=== PATIENT | male | born 1940 | race Caucasian/White ===

== ENCOUNTER 2017-09-26 01:50 | Emergency (ER) | payer OTHER ==
--- NOTE | 2017-09-26 02:13 | EDPHYS ---
Physician Documentation [facility] Name: Valente Dave Age: 77 yrs Sex: Male : 1940 Arrival Date: 09/26/2017 Time: 01:51 Bed 5 Private MD: Mirza Park ED Physician Jared Fernandez HPI: 09/26 02:05 This 77 yrs old Male presents to ER via Ambulatory with complaints of Other, ps1 Insect Bite. 02:05 patient states that he was mowing his yard and felt 3 insect bites one on each ankle ps1 and one to the left elbow. He states that he did not see what bit him. He came in because the pain did not remit since the event several hours ago. He took an aspirin and a benadryl and applied ice packs. No obvious injury or erythema. Patient additionally has hypertension and runs systolic in 200's especially during medical evaluations. He is asymptomatic. . Historical: - Allergies: 02:05 No Known Allergies; bb - Home Meds: 02:05 simvastatin 20 mg Oral tab 1 tab once daily [Active]; losartan 100 mg oral tab 1 tab bb once daily [Active]; omeprazole 20 mg Oral cpDR 1 cap once daily [Active]; tramadol 50 mg Oral tab as needed [Active]; - PMHx: 02:05 BPH; High Cholesterol; Hypertension; bb - PSHx: 02:05 prostate surgery; bb - Immunization history:: Adult Immunizations up to date. - Social history:: Smoking status: unknown. - Ebola Screening: : No symptoms or risks identified at this time. ROS: 02:05 Constitutional: Negative for fever, chills, and weight loss, Eyes: Negative for injury, ps1 pain, redness, and discharge, ENT: Negative for injury, pain, and discharge, Cardiovascular: Negative for chest pain, palpitations, and edema, Respiratory: Negative for shortness of breath, cough, wheezing, and pleuritic chest pain, Abdomen/GI: Negative for abdominal pain, nausea, vomiting, diarrhea, and constipation, Back: Negative for injury and pain, MS/Extremity: Negative for injury and deformity. 02:05 Skin: Positive for discoloration. Exam: 02:05 Constitutional: This is a well developed, well nourished patient who is awake, alert, ps1 and in no acute distress. Head/Face: Normocephalic, atraumatic. Eyes: Pupils equal round and reactive to light, extra-ocular motions intact. Lids and lashes normal. Conjunctiva and sclera are non-icteric and not injected. Chest/axilla: Normal chest wall appearance and motion. Nontender with no deformity. No lesions are appreciated. Cardiovascular: Regular rate and rhythm. No gallops, murmurs, or rubs. Normal PMI, no JVD. No pulse deficits. Respiratory: Lungs have equal breath sounds bilaterally, clear to auscultation and percussion. No rales, rhonchi or wheezes noted. No increased work of breathing, no retractions or nasal flaring. Abdomen/GI: Soft, non-tender, with normal bowel sounds. No distension or tympany. No guarding or rebound. No evidence of tenderness throughout. MS/ Extremity: Pulses equal, no cyanosis. Neurovascular intact. Full, normal range of motion. Neuro: Awake and alert, GCS 15, oriented to person, place, time, and situation. Cranial nerves II-XII grossly intact. Sensory grossly intact. 02:05 Skin: small punctate mariano at the site of reported bite. No surrounding erythema or inflammation. . Vital Signs: 02:05 BP 202 / 100; Pulse 85; Resp 18 S; Temp 98.1(O); Pulse Ox 97% on R/A; Weight 83.91 kg bb (R); Height 5 ft. 6 in. (167.64 cm) (R); Pain 8/10; 02:26 BP 192 / 109; Pulse 82; Resp 18; Temp 98.1(O); Pulse Ox 97% on R/A; ak1 02:05 Body Mass Index 29.86 (83.91 kg, 167.64 cm) bb MDM: 02:05 Data reviewed: vital signs, nurses notes, and as a result, I will discharge patient. ps1 02:12 Patient medically screened. ps1 Administered Medications: 02:22 Drug: Decadron 10 mg Route: IM; Site: Other; ak1 02:25 Follow up: Response: No adverse reaction ak1 02:23 Drug: TORadol 30 mg Route: IM; Site: left deltoid; ak1 02:25 Follow up: Response: No adverse reaction ak1 Disposition: 09/26/17 02:12 Discharged to Home. Impression: insect bite. - Condition is Stable. - Discharge Instructions: Insect Bite, [id number]. - Medication Reconciliation Form, Thank You Letter, Antibiotic Education, Prescription Opioid Use form. - Follow up: Mirza Park MD; When: As needed; Reason: Recheck today's complaints, Continuance of care, Re-evaluation by your physician. Follow up: Emergency Department; When: As needed; Reason: Trouble breathing, Worsening of condition. - Problem is new. - Symptoms have improved. Signatures: Soledad Hill RN RN bb Hailee Valencia RN RN ak1 Jared Fernandez MD MD ps1 Corrections: (The following items were deleted from the chart) 02:37 02:12 09/26/2017 02:12 Discharged to Home. Impression: insect bite. Condition is ak1 Stable. Forms are Medication Reconciliation Form, Thank You Letter, Antibiotic Education, Prescription Opioid Use. Follow up: Mirza Park; When: As needed; Reason: Recheck today's complaints, Continuance of care, Re-evaluation by your physician. Follow up: Emergency Department; When: As needed; Reason: Trouble breathing, Worsening of condition. Problem is new. Symptoms have improved. ps1
--- NOTE | 2017-09-26 02:13 | ER ---
Nurse's Notes [facility] Name: Valente Dave Age: 77 yrs Sex: Male : 1940 Arrival Date: 09/26/2017 Time: 01:51 Bed 5 Private MD: Mirza Park Diagnosis: insect bite Presentation: 09/26 02:01 Presenting complaint: Patient states: he was mowing the yard about 1800/1900 last night bb and was bit by some insects on his ankles and left elbow he tried aspirin, benadryl, and ice packs and the pain is still intense. Transition of care: patient was not received from another setting of care. Onset of symptoms was September 25, 2017. Risk Assessment: Do you want to hurt yourself or someone else? Patient reports no desire to harm self or others. Initial Sepsis Screen: Does the patient meet any 2 criteria? No. Patient's initial sepsis screen is negative. Does the patient have a suspected source of infection? No. Patient's initial sepsis screen is negative. Care prior to arrival: None. 02:01 Method Of Arrival: Ambulatory bb 02:01 Acuity: GLORIA 5 bb Triage Assessment: 02:10 Bite description: bite sustained to left leg and right leg by an unknown animal, animal ak1 information: vaccination(s) is not applicable. Historical: - Allergies: 02:05 No Known Allergies; bb - Home Meds: 02:05 simvastatin 20 mg Oral tab 1 tab once daily [Active]; losartan 100 mg oral tab 1 tab bb once daily [Active]; omeprazole 20 mg Oral cpDR 1 cap once daily [Active]; tramadol 50 mg Oral tab as needed [Active]; - PMHx: 02:05 BPH; High Cholesterol; Hypertension; bb - PSHx: 02:05 prostate surgery; bb - Immunization history:: Adult Immunizations up to date. - Social history:: Smoking status: unknown. - Ebola Screening: : No symptoms or risks identified at this time. Screenin:07 Abuse screen: Denies threats or abuse. Denies injuries from another. Nutritional ak1 screening: No deficits noted. Tuberculosis screening: No symptoms or risk factors identified. Fall Risk None identified. Assessment: 02:07 General: Appears in no apparent distress. Behavior is calm, cooperative. Pain: ak1 Complains of pain in right leg and left leg. Neuro: No deficits noted. Cardiovascular: No deficits noted. Respiratory: No deficits noted. GI: : No signs and/or symptoms were reported regarding the genitourinary system. EENT: No signs and/or symptoms were reported regarding the EENT system. Derm: Skin is intact, is healthy with good turgor, Skin is pink, warm \T\ dry. pt reports pain to left ankle, left lower leg and right ankle after mowing the yard. pt states, insect bite or sting to the locations of pain. no wound noted. Musculoskeletal: No signs and/or symptoms reported regarding the musculoskeletal system. Vital Signs: 02:05 BP 202 / 100; Pulse 85; Resp 18 S; Temp 98.1(O); Pulse Ox 97% on R/A; Weight 83.91 kg bb (R); Height 5 ft. 6 in. (167.64 cm) (R); Pain 8/10; 02:26 BP 192 / 109; Pulse 82; Resp 18; Temp 98.1(O); Pulse Ox 97% on R/A; ak1 02:05 Body Mass Index 29.86 (83.91 kg, 167.64 cm) bb ED Course: 01:51 Patient arrived in ED. es 01:51 Mirza Park MD is Private Physician. es 02:00 Jared Fernandez MD is Attending Physician. ps1 02:03 Triage completed. bb 02:05 Arm band placed on Patient placed in an exam room, on a stretcher. bb 02:07 Hailee Valencia, RN is Primary Nurse. ak1 02:07 Patient has correct armband on for positive identification. Bed in low position. Call ak1 light in reach. Side rails up X 1. Pulse ox on. NIBP on. 02:12 Mirza Park MD is Referral Physician. ps1 02:24 No provider procedures requiring assistance completed. Patient did not have IV access ak1 during this emergency room visit. Administered Medications: 02:22 Drug: Decadron 10 mg Route: IM; Site: Other; ak1 02:25 Follow up: Response: No adverse reaction ak1 02:23 Drug: TORadol 30 mg Route: IM; Site: left deltoid; ak1 02:25 Follow up: Response: No adverse reaction ak1 Outcome: 02:12 Discharge ordered by . ps1 02:25 Discharged to home ambulatory. ak1 02:25 Condition: stable 02:25 Discharge instructions given to patient, Instructed on discharge instructions, follow up and referral plans. Demonstrated understanding of instructions, follow-up care. 02:37 Patient left the ED. ak1 Signatures: Noy De Jesus Brenda RN RN bb Hailee Valencia RN RN ak1 Jared Fernandez MD MD ps1
[2017-09-26] MEDS ORDERED: KETOROLAC 30 MG/ML INJ ONE (02:19)
[2017-09-26] MEDS ORDERED: DEXAMETHASONE 10 MG/ML VIAL ONE (02:19)
== END 2017-09-26 02:37 | disposition home or self-care (01) ==
LOC: ER 01:50
DX: T14.8XXA Other injury of unspecified body region, initial encounter (principal); W57.XXXA Bitten or stung by nonvenomous insect and other nonvenomous arthropods, initial encounter; Y93.9 Activity, unspecified; Y92.9 Unspecified place or not applicable; E78.00 Pure hypercholesterolemia, unspecified; I10 Essential (primary) hypertension
CPT/HCPCS: 96372; 99283; J1100

== ENCOUNTER 2018-08-06 15:10 | Emergency (ER) | payer MEDICARE, OTHER ==
--- NOTE | 2018-08-06 15:54 | RAD REPORT ---
EXAM DESCRIPTION: RAD - Chest Single View - 08/06/2018 3:49 pm CLINICAL HISTORY: Chest pain COMPARISON: October 2015 TECHNIQUE: AP portable chest image was obtained 1548 hours . FINDINGS: Lung volumes are low. No peripheral mass, consolidation or failure finding. Heart and vasc ulature are normal. No measurable pleural effusion and no pneumothorax. No acute bony abnormality see n. No acute aortic findings suspected. IMPRESSION: Limited shallow inspiration portable exam without acute cardiopulmonary finding.
[2018-08-06 16:12] LABS: Absolute Lymphocytes (CBC) 1.2 K/uL (0.7-4.9); Absolute Monocytes 1.5 K/uL (0.1-1.3); Absolute Neutrophil 8.6 K/uL (1.8-8.0); Basophils % 0.4 % (0-1.3); Eosinophils % 0.3 % (0-4.4); Hematocrit 42.4 % (39.6-49.0); Lymphocytes % 10.9 % (15.3-44.8); MPV 9.7 fL (7.6-11.3); Monocytes % 13.3 % (3.3-12.3); RBC Red Blood Cell Count 4.65 M/uL (4.33-5.43)
[2018-08-06 16:30] LABS: ALT/SGPT 32 U/L (12-78); AST/SGOT 16 U/L (15-37); Alkaline Phosphatase 69 U/L (45-117); BUN Blood Urea Nitrogen 25 mg/dL (7-18); Bicarbonate 29 mmol/L (21-32); Bilirubin Total 1.2 mg/dL (0.2-1.0); Glucose Level 102 mg/dL (74-106); Magnesium 1.9 mg/dL (1.8-2.4); NT PRO-BNP 215 pg/mL (<450); Potassium 3.2 mmol/L (3.5-5.1); Protein, Total 7.5 g/dL (6.4-8.2); Sodium Level 139 mmol/L (136-145); Troponin (Emerg Dept Use Only) < 0.02 ng/mL (0.0-0.045)
--- NOTE | 2018-08-06 18:33 | EDPHYS ---
Physician Documentation [facility] Name: Valente Dave Age: 78 yrs Sex: Male : 1940 Arrival Date: 08/06/2018 Time: 15:13 Bed 7 Private MD: Janie Montero C ED Physician Jared Fernandez HPI: 08/06 18:32 This 78 yrs old Male presents to ER via Ambulatory with complaints of Chest ps1 Pain. 18:32 patient states that he has been working outside in the heat and may have got ps1 dehydrated. He is additionally on lasix, drinks coffee, and soft drinks. He states he was doing exertional work and started having symptoms of lightheadedness. He went to bed and has had non-specific chest pain that feels like a knot in his chest that does not radiate. No nausea or diaphoresis. Had a chest pain workup with stress test and echo that was normal. . Historical: - Allergies: 15:17 No Known Allergies; hj - PMHx: 15:17 BPH; High Cholesterol; Hypertension; hj - PSHx: 15:17 prostate surgery; hj - Immunization history:: Adult Immunizations up to date. - Social history:: Smoking status: Patient/guardian denies using tobacco. - Ebola Screening: : No symptoms or risks identified at this time. ROS: 18:32 Constitutional: Negative for fever, chills, and weight loss, Eyes: Negative for injury, ps1 pain, redness, and discharge, Respiratory: Negative for shortness of breath, cough, wheezing, and pleuritic chest pain, Abdomen/GI: Negative for abdominal pain, nausea, vomiting, diarrhea, and constipation, MS/Extremity: Negative for injury and deformity, Skin: Negative for injury, rash, and discoloration, Neuro: Negative for headache, weakness, numbness, tingling, and seizure. 18:32 Cardiovascular: Positive for chest pain. Exam: 18:32 Constitutional: This is a well developed, well nourished patient who is awake, alert, ps1 and in no acute distress. Head/Face: Normocephalic, atraumatic. Eyes: Pupils equal round and reactive to light, extra-ocular motions intact. Lids and lashes normal. Conjunctiva and sclera are non-icteric and not injected. ENT: Nares patent. No nasal discharge, no septal abnormalities noted. Tympanic membranes are normal and external auditory canals are clear. Oropharynx with no redness, swelling, or masses, exudates, or evidence of obstruction, uvula midline. Mucous membranes moist. Chest/axilla: Normal chest wall appearance and motion. Nontender with no deformity. No lesions are appreciated. Cardiovascular: Regular rate and rhythm. No gallops, murmurs, or rubs. Normal PMI, no JVD. No pulse deficits. Respiratory: Lungs have equal breath sounds bilaterally, clear to auscultation and percussion. No rales, rhonchi or wheezes noted. No increased work of breathing, no retractions or nasal flaring. Abdomen/GI: Soft, non-tender, with normal bowel sounds. No distension or tympany. No guarding or rebound. No evidence of tenderness throughout. MS/ Extremity: Pulses equal, no cyanosis. Neurovascular intact. Full, normal range of motion. Neuro: Awake and alert, GCS 15, oriented to person, place, time, and situation. Cranial nerves II-XII grossly intact. Sensory grossly intact. Psych: Awake, alert, with orientation to person, place and time. Behavior, mood, and affect are within normal limits. Vital Signs: 15:17 BP 137 / 81; Pulse 124; Resp 16; Temp 99.5(TE); Pulse Ox 96% on R/A; Weight 83.91 kg; hj Height 5 ft. 6 in. (167.64 cm); Pain 5/10; 16:00 BP 123 / 86; Pulse 107; Resp 18; Temp 98.0(O); Pulse Ox 95% on R/A; Pain 0/10; dh3 17:00 BP 113 / 75; Pulse 100; Resp 17; Temp 98.1(O); Pulse Ox 96% on R/A; Pain 0/10; dh3 18:00 BP 129 / 84; Pulse 111; Resp 16; Temp 98.1; Pulse Ox 95% on R/A; Pain 0/10; dh3 15:17 Body Mass Index 29.86 (83.91 kg, 167.64 cm) MDM: 16:13 Patient medically screened. ps1 18:37 Data reviewed: vital signs, nurses notes, lab test result(s), EKG, radiologic studies, ps1 and as a result, I will discharge patient. Counseling: I had a detailed discussion with the patient and/or guardian regarding: the historical points, exam findings, and any diagnostic results supporting the discharge/admit diagnosis, lab results, radiology results, the need for outpatient follow up, to return to the emergency department if symptoms worsen or persist or if there are any questions or concerns that arise at home. 08/06 15:30 Order name: CBC with Diff ps1 08/06 15:30 Order name: Magnesium; Complete Time: 16:35 ps1 08/06 15:30 Order name: NT PRO-BNP; Complete Time: 16:35 ps1 08/06 15:30 Order name: Troponin (emerg Dept Use Only); Complete Time: 16:35 ps1 08/06 15:30 Order name: CMP; Complete Time: 16:35 ps1 08/06 15:31 Order name: CBC with Automated Diff; Complete Time: 16:16 EDMS 08/06 15:19 Order name: EKG - Nurse/Tech; Complete Time: 15:34 hj 08/06 15:30 Order name: XRAY Chest (1 view); Complete Time: 16:13 ps1 08/06 15:30 Order name: EKG; Complete Time: 15:32 ps1 08/06 15:30 Order name: Cardiac monitoring; Complete Time: 15:52 ps1 08/06 15:30 Order name: IV Saline Lock; Complete Time: 15:52 ps1 08/06 15:30 Order name: Labs collected and sent; Complete Time: 15:52 ps1 08/06 15:30 Order name: O2 Per Protocol; Complete Time: 15:52 ps1 08/06 17:02 Order name: DD; Complete Time: 18:08 ps1 08/06 15:30 Order name: O2 Sat Monitoring; Complete Time: 15:52 ps1 EC:30 Rate is 116 beats/min. Rhythm is regular. QRS [place] is Normal. [place] interval is normal. ps1 QRS interval is normal. QT interval is normal. No Q waves. T waves are Normal. No ST changes noted. Clinical impression: Sinus tachycardia. Interpreted by me. Administered Medications: No medications were administered Disposition: 08/06/18 18:32 Discharged to Home. Impression: Dehydration, Other chest pain, Cough. - Condition is Stable. - Discharge Instructions: Nonspecific Chest Pain, Dehydration, Adult. - Medication Reconciliation Form, Thank You Letter, Antibiotic Education, Prescription Opioid Use form. - Follow up: Janie Montero MD; When: 48 Hours; Reason: Further diagnostic work-up, Recheck today's complaints, Continuance of care, Re-evaluation by your physician. Follow up: Emergency Department; When: As needed; Reason: Fever > 102 F, Trouble breathing, Worsening of condition. - Problem is new. - Symptoms have improved. Signatures: Dispatcher [employer] EDMS Valentin Noyola RN RN hj Bebeto Wong RN RN Jared Andre MD MD ps1 Corrections: (The following items were deleted from the chart) 18:44 18:32 08/06/2018 18:32 Discharged to Home. Impression: Dehydration; Other chest pain; bp Cough. Condition is Stable. Forms are Medication Reconciliation Form, Thank You Letter, Antibiotic Education, Prescription Opioid Use. Follow up: Janie Montero; When: 48 Hours; Reason: Further diagnostic work-up, Recheck today's complaints, Continuance of care, Re-evaluation by your physician. Follow up: Emergency Department; When: As needed; Reason: Fever > 102 F, Trouble breathing, Worsening of condition. Problem is new. Symptoms have improved. ps1
--- NOTE | 2018-08-06 18:33 | ER ---
Nurse's Notes [facility] Name: Valente Dave Age: 78 yrs Sex: Male : 1940 Arrival Date: 08/06/2018 Time: 15:13 Bed 7 Private MD: Janie Montero C Diagnosis: Dehydration;Other chest pain;Cough Presentation: 08/06 15:14 Presenting complaint: Patient states: about 8 pm last night, i felt this pain on my hj chest, feeling tight and the pain goes to my back, i was doing yard work last Saturday, now i felt congested; denies fever; i called my PCP and was advised to go to the ER;. Transition of care: patient was not received from another setting of care. Onset of symptoms was August 06, 2018. Risk Assessment: Do you want to hurt yourself or someone else? Patient reports no desire to harm self or others. Initial Sepsis Screen: Does the patient meet any 2 criteria? No. Patient's initial sepsis screen is negative. Does the patient have a suspected source of infection? No. Patient's initial sepsis screen is negative. Care prior to arrival: None. 15:14 Method Of Arrival: Ambulatory 15:14 Acuity: GLORIA 3 hj Triage Assessment: 15:15 General: Appears in no apparent distress. comfortable, Behavior is cooperative, bp appropriate for age, anxious. Pain: Complains of pain in chest. EENT: No deficits noted. Neuro: Level of Consciousness is awake, alert, obeys commands, Oriented to person, place, time, situation, Appropriate for age. Cardiovascular: Rhythm is sinus tachycardia. Respiratory: No deficits noted. GI: No signs and/or symptoms were reported involving the gastrointestinal system. : No signs and/or symptoms were reported regarding the genitourinary system. Derm: No deficits noted. Musculoskeletal: No deficits noted. Historical: - Allergies: 15:17 No Known Allergies; hj - PMHx: 15:17 BPH; High Cholesterol; Hypertension; hj - PSHx: 15:17 prostate surgery; hj - Immunization history:: Adult Immunizations up to date. - Social history:: Smoking status: Patient/guardian denies using tobacco. - Ebola Screening: : No symptoms or risks identified at this time. Screenin:52 Abuse screen: Denies threats or abuse. Denies injuries from another. Nutritional bp screening: No deficits noted. Tuberculosis screening: No symptoms or risk factors identified. Fall Risk None identified. Assessment: 15:20 General: SEE TRIAGE NOTE. Pain: Complains of pain in chest Pain does not radiate. Pain bp began 2-3 days ago. Cardiovascular: Rhythm is sinus tachycardia. 17:00 Reassessment: ALL CURRENT ORDERS IN PROCESS, PT REMAINS IN ST ON MONITOR. bp 18:43 Reassessment: PT D/C HOME AMBULATORY WITH FAMILY, DX WITH DEHYDRATION AND NON-CARDIAC bp CHEST PAIN. Vital Signs: 15:17 BP 137 / 81; Pulse 124; Resp 16; Temp 99.5(TE); Pulse Ox 96% on R/A; Weight 83.91 kg; hj Height 5 ft. 6 in. (167.64 cm); Pain 5/10; 16:00 BP 123 / 86; Pulse 107; Resp 18; Temp 98.0(O); Pulse Ox 95% on R/A; Pain 0/10; dh3 17:00 BP 113 / 75; Pulse 100; Resp 17; Temp 98.1(O); Pulse Ox 96% on R/A; Pain 0/10; dh3 18:00 BP 129 / 84; Pulse 111; Resp 16; Temp 98.1; Pulse Ox 95% on R/A; Pain 0/10; dh3 15:17 Body Mass Index 29.86 (83.91 kg, 167.64 cm) ED Course: 15:13 Patient arrived in ED. mr 15:13 Janie Montero MD is Private Physician. mr 15:17 Triage completed. hj 15:17 Arm band placed on right wrist. hj 15:29 Jared Fernandez MD is Attending Physician. ps1 15:31 Bebeto Wong, MARIANELA is Primary Nurse. bp 15:37 EKG done, by distribution technician. reviewed by Jared Fernandez MD. sm3 15:50 XRAY Chest (1 view) In Process Unspecified. EDMS 15:50 Inserted saline lock: 20 gauge in right forearm, using aseptic technique. Blood bp collected. 15:50 Patient maintains SpO2 saturation greater than 95% on room air. bp 15:52 Patient has correct armband on for positive identification. Placed in gown. Bed in low bp position. Call light in reach. Side rails up X2. Adult w/ patient. laboratory monitor on. Pulse ox on. NIBP on. 17:17 DD Sent. ss 18:31 Janie Montero MD is Referral Physician. ps1 18:43 No provider procedures requiring assistance completed. IV discontinued, intact, bp bleeding controlled, No redness/swelling at site. Pressure dressing applied. Administered Medications: No medications were administered Outcome: 18:32 Discharge ordered by MD. ps1 18:44 Discharged to home ambulatory, with family. bp 18:44 Condition: stable 18:44 Discharge instructions given to patient, Instructed on discharge instructions, follow up and referral plans. Demonstrated understanding of instructions, follow-up care. 18:44 Patient left the ED. bp Signatures: Dispatcher [employer] EDIL Susan Campbell Amy Tierney, RN RN Valentin Noyola RN MARIANELA Rachel Mace 3 Bebeto Wong RN RN bp Jared Fernandez MD MD ps1 Rodriguez, Debbie 3 Corrections: (The following items were deleted from the chart) 18:35 18:00 BP 129 / 84; Pulse 111bpm; Resp 16bpm; Pulse Ox 95% RA; dh3 dh3 18:35 17:00 BP 113 / 75; Pulse 100bpm; Resp 17bpm; Pulse Ox 96% RA; dh3 dh3 18:35 16:00 BP 123 / 86; Pulse 107bpm; Resp 18bpm; Pulse Ox 95% RA; dh3 dh3
--- NOTE | 2018-08-06 21:17 | EKG ---
Test Date: 2018-08-06 Test Time: 15:30:09 College Intern: MARY MEASUREMENT RESULTS: Intervals: Rate: 116 WY: 154 QRSD: 72 QT: 306 QTc: 425 [place]: P: 51 WY: 154 QRS: 54 T: 59 INTERPRETIVE STATEMENTS: Sinus tachycardia Otherwise normal ECG Compared to ECG 02/01/2016 14:32:51 Sinus rhythm no longer present Electronically Signed On 08-06-18 21:17:24 CDT by Rufus Goyal
== END 2018-08-06 18:44 | disposition home or self-care (01) ==
LOC: ER 15:10
DX: E86.0 Dehydration (principal); R05 Cough; I10 Essential (primary) hypertension
CPT/HCPCS: 36415; 71045; 80053; 83735; 83880; 84484; 85025; 85379; 93005; 99285

== ENCOUNTER 2022-02-07 09:33 | Emergency (ER) | payer OTHER ==
--- OUTSIDE RECORDS SUMMARY | 2022-02-07 09:36 | XMS REPORT | Continuity of Care Document ---
:1940 Author Organization [facility] t Address [address] [place] [address] Dr. [place] [address] [place] [id number] Care Team Providers Name Role Phone Ketan Attending Clinician Unavailable Ketan Admitting Clinician Unavailable Problems This patient has no known problems. Allergies, Adverse Reactions, Alerts This patient has no known allergies or adverse reactions. Medications This patient has no known medications. Procedures This patient has no known procedures. Encounters Start End Encounter Admission Attending Care Care Encounter Source Date/Time Date/Time Type Type Clinicians Facility Department ID 2019-07-10 2019-07-10 Outpatient Ketan [facility] [id number] [place] 03:20:00 03:20:00 [facility] Results This patient has no known results.
--- NOTE | 2022-02-07 10:45 | EDPHYS ---
Physician Documentation [facility] Name: Valente Dave Age: 81 yrs Sex: Male : 1940 Arrival Date: 02/07/2022 Time: 09:37 Bed 10 Private MD: Janie Montero C ED Physician Joshua Grace HPI: 02/07 10:02 This 81 yrs old Male presents to ER via Ambulatory with complaints of Sinus Pain. jm 10:02 The patient or guardian reports. This is an 81 year old male with a history of hlp, jmm htn, bph that presents to the ED with complaints of right lower molar pain which has been ongoing since an extraction which occurred on the 4th of this month. Denies fever but states pain radiates into the right ear. . Historical: - PMHx: 09:59 BPH; High Cholesterol; Hypertension; jh5 - Immunization history:: Adult Immunizations up to date. - Social history:: Smoking status: Patient denies any tobacco usage or history of. ROS: 10:02 Constitutional: Negative for fever, chills, and weight loss, Cardiovascular: Negative jmm for chest pain, palpitations, and edema, Respiratory: Negative for shortness of breath, cough, wheezing, and pleuritic chest pain. 10:02 ENT: Positive for dental pain. 10:02 All other systems are negative. Exam: 10:02 Constitutional: This is a well developed, well nourished patient who is awake, alert, jmm and in no acute distress. Head/Face: atraumatic. Eyes: EOMI, no conjunctival erythema appreciated 10:02 Chest/axilla: Normal chest wall appearance and motion. Cardiovascular: Regular rate and rhythm. No edema appreciated Respiratory: Normal respirations, no respiratory distress appreciated Abdomen/GI: Non distended Back: Normal ROM Skin: General appearance color normal MS/ Extremity: Moves all extremities, no obvious deformities appreciated, no edema noted to the lower extremities Neuro: Awake and alert Psych: Behavior is normal, Mood is normal, Patient is cooperative and pleasant 10:02 ENT: Dental exam: gum swelling, that is mild, specifically in the lower right second molar (#31) and lower right third molar (#32). Vital Signs: 09:55 BP 128 / 112; Pulse 75; Resp 18; Temp 98.6; Pulse Ox 100% ; Weight 77.11 kg; Height 5 [facility] ft. 8 in. (172.72 cm); Pain 7/10; 10:57 BP 140 / 86; Pulse 76; kr3 09:55 Body Mass Index 25.85 (77.11 kg, 172.72 cm) [facility] MDM: 10:04 Patient medically screened. [facility] 10:43 Data reviewed: vital signs, nurses notes. Counseling: I had a detailed discussion with [facility] the patient and/or guardian regarding: the historical points, exam findings, and any diagnostic results supporting the discharge/admit diagnosis, the need for outpatient follow up, to return to the emergency department if symptoms worsen or persist or if there are any questions or concerns that arise at home. ED course: Patient is alert and non toxic in appearance in the ED. Advised to follow up with dentist for reevaluation. Patient is otherwise given strict return precautions. Patient understood and agrees with the plan of care. . Administered Medications: No medications were administered Disposition Summary: 02/07/22 10:44 Discharge Ordered Location: Home [facility] Condition: Stable [facility] Diagnosis - Dental Pain [facility] Followup: [facility] - With: Rj Shi DDS - When: 2 - 3 days - Reason: Recheck today's complaints, Continuance of care, Re-evaluation by your physician Discharge Instructions: - Discharge Summary Sheet [facility] - Dental Pain [facility] Forms: - Medication Reconciliation Form [facility] - Thank You Letter [facility] - Antibiotic Education [facility] - Prescription Opioid Use [facility] Prescriptions: - Peridex 0.12 % Mucous Membrane mouthwash - place 15 milliliter by MUCOUS MEMBRANE route 2 times per day after brushing [facility] teeth, swish in mouth for 30 seconds then spit out; 1 bottle; Refills: 0, Product Selection Permitted - Amoxicillin 875 mg Oral Tablet - take 1 tablet by ORAL route every 12 hours for 10 days; 20 tablet; Refills: 0, [facility] Product Selection Permitted Signatures: Joshua Grace MD MD cha Mickail, Joel, PA PA jmm Rees, Jessica, RN RN 5
--- NOTE | 2022-02-07 10:45 | ER ---
Nurse's Notes [facility] Name: Valente Dave Age: 81 yrs Sex: Male : 1940 Arrival Date: 02/07/2022 Time: 09:37 Bed 10 Private MD: Janie Montero C Diagnosis: Dental Pain Presentation: 02/07 09:55 Chief complaint: Patient states: I had tooth extraction at [place] and I didn't go to a oral 5 surgeon like i have in the past and I am getting sinus pain and maybe an infection I think I just wanted to come have someone look at it and tell me if i need antibiotics; i just cant get comfortable. Coronavirus screen: Vaccine status: Patient reports receiving the 2nd dose of the covid vaccine. Client denies travel out of the [place] in the last 14 days. Ebola Screen: Patient negative for fever greater than or equal to 101.5 degrees Fahrenheit, and additional compatible Ebola Virus Disease symptoms Patient denies exposure to infectious person. Patient denies travel to an Ebola-affected area in the 21 days before illness onset. Initial Sepsis Screen: Does the patient meet any 2 criteria? No. Patient's initial sepsis screen is negative. Does the patient have a suspected source of infection? No. Patient's initial sepsis screen is negative. Risk Assessment: Do you want to hurt yourself or someone else? Patient reports no desire to harm self or others. 09:55 Method Of Arrival: Ambulatory [facility] 09:55 Acuity: GLORIA 3 [facility] 10:56 Onset of symptoms was February 02, 2022. 3 Triage Assessment: 09:59 General: Appears uncomfortable, slender, well groomed, well developed, Behavior is jh5 calm, cooperative, appropriate for age. Pain: Complains of pain in jaw Pain currently is 7 out of 10 on a pain scale. at worst was 10 out of 10 on a pain scale. Neuro: No deficits noted. 10:55 Headache History: Other no headache noted. Pain: Also complains of. [facility] 10:56 Pain: Pain began gradually. 3 Historical: - PMHx: 09:59 BPH; High Cholesterol; Hypertension; jh5 - Immunization history:: Adult Immunizations up to date. - Social history:: Smoking status: Patient denies any tobacco usage or history of. Screenin:54 Abuse screen: Denies threats or abuse. Nutritional screening: No deficits noted. kr3 Tuberculosis screening: No symptoms or risk factors identified. Fall Risk Total Mcdowell Fall Scale indicates No Risk (0-24 pts). Vital Signs: 09:55 BP 128 / 112; Pulse 75; Resp 18; Temp 98.6; Pulse Ox 100% ; Weight 77.11 kg; Height 5 [facility] ft. 8 in. (172.72 cm); Pain 7/10; 10:57 BP 140 / 86; Pulse 76; kr3 09:55 Body Mass Index 25.85 (77.11 kg, 172.72 cm) [facility] ED Course: 09:37 Patient arrived in ED. as 09:37 Janie Montero MD is Private Physician. as 09:[address] [facility] 09:49 Joshua Grace MD is Attending Physician. [facility] 09:58 Triage completed. [facility] 09:59 Arm band placed on right wrist. [facility] 10:00 Bed in low position. Call light in reach. Side rails up X 1. kr3 10:44 Rj Shi DDS is Referral Physician. [facility] 10:45 Sridevi Mclaughlin, MARIANELA is Primary Nurse. kr3 10:55 No provider procedures requiring assistance completed. Patient did not have IV access kr3 during this emergency room visit. Administered Medications: No medications were administered Medication: 10:56 VIS not applicable for this client. kr3 Outcome: 10:44 Discharge ordered by . m 10:54 Patient left the ED. kr3 10:55 Discharged to home ambulatory. kr3 10:55 Condition: stable 10:55 Discharge instructions given to patient, Instructed on discharge instructions, follow up and referral plans. medication usage, Demonstrated understanding of instructions, follow-up care, medications, Prescriptions given X 2. Signatures: Jeromy Lane PA PA jmm Martinez, Amelia as Rees, Jessica RN RN [facility] Sridevi Mclaughlin RN RN [facility]
[2022-02-07 10:58] VITALS: BP 128/112; TEMP 98.6; O2SAT 100
== END 2022-02-07 10:54 | disposition home or self-care (01) ==
LOC: ER 09:33
DX: K08.89 Other specified disorders of teeth and supporting structures (principal); I10 Essential (primary) hypertension

== ENCOUNTER 2022-06-25 06:30 | Day surgery (SDC) | payer OTHER ==
[2022-06-22 10:51] LABS: Absolute Lymphocytes (CBC) 1.1 K/uL (0.7-4.9); Hematocrit 41.1 % (39.6-49.0); Lymphocytes % 15.4 % (15.3-44.8); MCV 90.8 fL (80-100); MPV 8.3 fL (7.6-11.3); RBC Red Blood Cell Count 4.53 M/uL (4.33-5.43)
[2022-06-22 10:55] LABS: Protime INR 1.03
[2022-06-22 11:06] LABS: Potassium 3.9 mEq/L (3.5-5.1)
--- NOTE | 2022-06-22 12:41 | RAD REPORT ---
EXAM DESCRIPTION: Thort Pa And Lat (2 Views)06/22/2022 10:52 am CLINICAL HISTORY: pre op for [employer] COMPARISON: Chest Single View dated 08/06/2018; Chest Single View dated 11/14/2015 TECHNIQUE: PA and lateral views of the chest. FINDINGS: The lungs are clear. No pneumothorax or effusion. The cardiomediastinal contours are unrem arkable. IMPRESSION: No acute cardiopulmonary process.
--- NOTE | 2022-06-23 15:21 | EKG ---
Test Date: 2022-06-22 Test Time: 10:33:49 [employer] [facility] Consultant: SHWETHA MEASUREMENT RESULTS: Intervals: Rate: 77 FL: 162 QRSD: 74 QT: 372 QTc: 420 [place]: P: 66 FL: 162 QRS: 62 T: 81 INTERPRETIVE STATEMENTS: Normal sinus rhythm Normal ECG Compared to ECG 08/06/2018 15:30:09 Sinus tachycardia no longer present Electronically Signed On 06-23-22 15:20:31 CDT by Drew Magallanes
[2022-06-25] MEDS ORDERED: HEPA 1000U/500MLS 2,000 UNIT/1,000 ML BAG IV ONE (06:42)
[2022-06-25] MEDS ORDERED: LIDOCAINE 1% 20 ML MDV ONE (06:42)
[2022-06-25] MEDS ORDERED: MIDAZOLAM HCL 2 MG/2 ML INJ ONE (06:43)
[2022-06-25] MEDS ORDERED: FENTANYL CITR 100 MCG/2 ML ONE (06:43)
[2022-06-25] MEDS ORDERED: HEPARIN 5000 UNIT/ML 1 ML VIAL ONE (06:43)
[2022-06-25] MEDS ORDERED: VERAPAMIL HCL 10 MG/4 ML VIAL IV ONE (06:43)
[2022-06-25] MEDS ORDERED: HEPARIN 10,000 UNIT/10 ML VIAL IV ONE (06:44)
[2022-06-25] MEDS ORDERED: ATROPINE SULF 1 MG/10 ML SYR IV ONE (06:44)
[2022-06-25] MEDS ORDERED: NITROGLYCERIN/D5W 25 MG/250 ML BTL IV ONE (06:44)
[2022-06-25] MEDS ORDERED: NITROGLYCERIN 100 MCG/ML SYR (for cath lab use only) IV ONE (06:44)
[2022-06-25] MEDS ORDERED: NA CHLORIDE 0.9% 500 ML ONE (07:12)
[2022-06-25 07:20] VITALS: TEMP 97.5
[2022-06-25] MEDS ORDERED: Phenylephrine HCl 10 MG/ML 1 ML VIAL ONE (07:59)
[2022-06-25] MEDS ORDERED: NOREPINEPHRINE BITARTRATE/D5W 4 MG/250 ML BAG IV ONE (08:02)
[2022-06-25 10:49] VITALS: BP 117/68; O2SAT 99
--- NOTE | 2022-06-25 20:28 | OP ---
Date of Procedure: 06/25/2022 Surgeon: SHOLA GRULLON Procedure Peformed: Selective coronary angiogram. Indication: Severe aortic valve stenosis, preaortic valve replacement. Access: Right radial artery 6-Andorran closed with TR band. Complications: None. Bleeding: Less than 10 mL. Description Of Procedure: After risks, benefits, alternatives were explained, patient agreed to proc edure and signed informed consent. Patient was brought into the cardiac catheterization laboratory, prepped and draped in a sterile fashion. Then, I accessed right radial artery using pediatric microp uncture kit. Placed 6-Andorran Slender sheath, took 5-Andorran [place] 4.0 catheter into the aortic root, engaged left main in the right coronary artery, took standard views, and removed the catheter and she ath, placed TR band with hemostasis. Findings: 1.Left main: Large, normal. 2.LAD normal. Normal diagonal branches. 3.Left circumflex: Very large and dominant and normal. 4.RCA: Small and dominant and normal. Conclusion: Normal coronary arteries. Plan: Proceed with TAVR as planned. SR/MODL Voice ID: [id number] Report ID: [id number]
== END 2022-06-25 10:51 | disposition home or self-care (01) ==
LOC: CCL 06:30
PROVIDERS: ATTEND Internal Medicine
DX: I35.2 Nonrheumatic aortic (valve) stenosis with insufficiency (principal); I10 Essential (primary) hypertension; I27.20 Pulmonary hypertension, unspecified; E78.2 Mixed hyperlipidemia; R09.89 Other specified symptoms and signs involving the circulatory and respiratory systems; K21.9 Gastro-esophageal reflux disease without esophagitis; Z79.899 Other long term (current) drug therapy
CPT/HCPCS: 93005; 85025; 80048; 36415; 85610; 85730; 71046; 93454; 76937; C1893; Q9966; J1644; J2001; J2370; J2250; J3010; J7040; J0461

== ENCOUNTER 2022-08-27 13:45 | Observation (INO) | payer OTHER ==
--- OUTSIDE RECORDS SUMMARY | 2022-08-27 13:53 | XMS REPORT | Continuity of Care Document ---
:1940 Author Organization [facility] t Address [address] [facility]. [address] [place] [address] Care Team Providers Name Role Phone Emory Yepez Attending Clinician Unavailable Arya Horowitz Attending Clinician Unavailable Ketan Attending Clinician Unavailable Crystal Fermin Admitting Clinician Unavailable Physician, No Primary or Family Admitting Clinician Unavaila antonio Aceves Admitting Clinician Unavailable Payers Payer Name Policy Type Policy Number Effective Date Expiration Date S ource Problems This patient has no known problems. Allergies, Adverse Reactions, Alerts Allergy Allergy Status Severity Reaction(s) Onset Inactive Treating Comm ents Source Name Type Date Date Clinician No Known DA Active U KARINA Allergie 6- Clear s 00:00: [address] Medications This patient has no known medications. Procedures Procedure Date / Time Performed Performing Clinician Sourc e [id number] 2022-08-14 00:00:00 CHAAB.01 [facility] [id number] 2022-08-14 00:00:00 CHAAB.01 KARINA [facility] Encounters Start End Encounter Admission Attending Care Care Encounter Source Date/Time Date/Time Type Type Clinicians Facility Department ID 2022-08-14 2022-08-15 Inpatient MELCHOR Lucho PATRICE CARD [id number] [facility] 05:36:00 12:25:00 [facility] 2022-07-04 2022-07-04 Outpatient PATRICE Olivarez [facility] [id number] [facility] 09:00:00 09:00:00 Arya Bolivar jimenez [facility] 2019-07-10 2019-07-10 Outpatient Ketan [facility] [facility] [id number] [place] 03:20:00 03:20:00 [facility] Results Test Description Test Time Test Comments Results Result Comments Source CBC W/AUTO DIFF 2022-08-15 08:48:00 Test Item Value Reference Range Interpretation Comme nts WHITE BLOOD CELL (test code = WBC) 18.2 x10 3/uL 4.5-11.0 H RED BLOOD CELL (test code = RBC) 4.23 x10 6/uL 4.00-5.60 N HEMOGLOBIN (test code = HGB) 13.3 g/dL 12.5-16.9 N HEMATOCRIT (test code = HCT) 37.9 % 37.5-50.7 N MEAN CELL VOLUME (test code = MCV) 89.6 fL 81.0-99.0 MEAN CELL HGB (test code = MCH) 31.4 pg 27.0-33.0 N MEAN CELL HGB CONCETRATION (test code = MCHC) 35.1 g/dL 33.0-37. 0 N RED CELL DISTRIBUTION WIDTH CV (test code = RDW) 14.0 % 11.5- 14.5 N RED CELL DISTRIBUTION WIDTH SD (test code = RDW-SD) 45.7 fL 37 .0-54.0 N PLATELET COUNT (test code = PLT) 204 x10 3/uL 150-400 N MEAN PLATELET VOLUME (test code = MPV) 11.2 fL 7.0-9.0 H NEUTROPHIL % (test code = NT%) 85.4 % 56.0-77.0 H IMMATURE GRANULOCYTE % (test code = IG%) 0.5 % 0.0-2.0 N LYMPHOCYTE % (test code = LY%) 4.9 % 14.0-32.0 L MONOCYTE % (test code = MO%) 8.9 % 4.8-9.0 N EOSINOPHIL % (test code = EO%) 0.1 % 0.3-3.7 L BASOPHIL % (test code = BA%) 0.2 % 0.0-2.0 N NUCLEATED RBC % (test code = NRBC%) 0.0 % 0-0 N NEUTROPHIL # (test code = NT#) 15.56 x10 3/uL 2.0-7.6 H IMMATURE GRANULOCYTE # (test code = IG#) 0.10 x10 3/uL 0.00-0.03 H LYMPHOCYTE # (test code = LY#) 0.89 x10 3/uL 1.0-3.8 L MONOCYTE # (test code = MO#) 1.62 x10 3/uL 0.1-0.8 H EOSINOPHIL # (test code = EO#) 0.01 x10 3/uL 0.0-0.2 N BASOPHIL # (test code = BA#) 0.03 x10 3/uL 0.0-0.2 N NUCLEATED RBC # (test code = NRBC#) 0.00 x10 3/uL 0.0-0.1 N MANUAL DIFF REQUIRED (test code = MDIFF) NO BASIC METABOLIC [id number] 07:25:00 Test Item Value Reference Range Interpretation Comments SODIUM (test code = 140 mEq/L 134-147 N NA) POTASSIUM (test code 3.5 mEq/L 3.4-5.0 N = K) CHLORIDE (test code 107 mEq/L 100-108 N = CL) CARBON DIOXIDE (test 26 mEq/l 21-33 N code = CO2) ANION GAP (test code 10 0-20 N = GAP) GLUCOSE (test code = 163 mg/dL 70-110 H GLU) BLOOD UREA NITROGEN 16 mg/dL 7-18 N (test code = BUN) GLOMERULAR 84.7 70-80 H The Glomerular FILTRATION RATE Filtration R ate is a (test code = GFR) calculated parameterbased on serum Creatinine, pat ient age and sex. GFR va luesless than 60 mL/min/ 1.73 square meters a re indicative ofCh ronic Kidney Disease. Values less than 15 mL/min/1.73squa re meters indicate Kidney failure. The calculation forGFR is based on the CKD-EPI (2020) calculat ion. This formulais race indifferent and is the recommended for nelsy for GFRby the Natio nal Kidney Foundati on for Adults.The GFR will not calculate if th e sex is unknown or if thepatient's ag e is <18 years. 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 Princess t performance dep ends on theamount of vi martin (antigen) in th e sample.This princess t has not been FDA cleare d or approved; the t est hasbeen authori zed by FDA under an Em ergency Use Authorizati on(EUA) for use by labo ratories certified under the CLIA thatmeet the requirements to perform moderate, high or waivedcomplexit y tests. CBC W/AUTO [id number] 13:33:00 Test Item Value Reference Range Interpretation Comments WHITE BLOOD CELL (test code = 6.4 x10 3/uL 4.5-11.0 N WBC) RED BLOOD CELL (test code = 4.35 x10 6/uL 4.00-5.60 N RBC) HEMOGLOBIN (test code = HGB) 13.0 g/dL 12.5-16.9 N HEMATOCRIT (test code = HCT) 40.6 % 37.5-50.7 N MEAN CELL VOLUME (test code = 93.3 fL 81.0-99.0 N MCV) MEAN CELL HGB (test code = MCH) 29.9 pg 27.0-33.0 N MEAN CELL HGB CONCETRATION 32.0 g/dL 33.0-37.0 L (test code = MCHC) RED CELL DISTRIBUTION WIDTH CV 13.8 % 11.5-14.5 N (test code = RDW) PLATELET COUNT (test code = 266 x10 3/uL 150-400 N PLT) NEUTROPHIL % (test code = NT%) 65.2 % 56.0-77.0 N LYMPHOCYTE % (test code = LY%) 18.9 % 14.0-32.0 N NEUTROPHIL # (test code = NT#) 4.14 x10 3/uL 2.0-7.6 N LYMPHOCYTE # (test code = LY#) 1.20 x10 3/uL 1.0-3.8 N MANUAL DIFF REQUIRED (test code NO = MDIFF) RED CELL DISTRIBUTION WIDTH SD 47.4 fL 37.0-54.0 N (test code = RDW-SD) MEAN PLATELET VOLUME (test code 11.5 fL 7.0-9.0 H = MPV) IMMATURE GRANULOCYTE % (test 0.5 % 0.0-2.0 N code = IG%) MONOCYTE % (test code = MO%) 11.8 % 4.8-9.0 H EOSINOPHIL % (test code = EO%) 2.7 % 0.3-3.7 N BASOPHIL % (test code = BA%) 0.9 % 0.0-2.0 N NUCLEATED RBC % (test code = 0.0 % 0-0 N NRBC%) IMMATURE GRANULOCYTE # (test 0.03 x10 3/uL 0.00-0.03 N code = IG#) MONOCYTE # (test code = MO#) 0.75 x10 3/uL 0.1-0.8 N EOSINOPHIL # (test code = EO#) 0.17 x10 3/uL 0.0-0.2 N BASOPHIL # (test code = BA#) 0.06 x10 3/uL 0.0-0.2 N NUCLEATED RBC # (test code = 0.00 x10 3/uL 0.0-0.1 N NRBC#) PROTHROMBIN [id number] 13:27:00 Test Item Value Reference Range Interpretation Comments PROTHROMBIN TIME 12.7 SECONDS 9.3-12.9 N PATIENT (test code = PTP) INTERNATIONAL NORMAL 1.1 0.8-1.2 N TARGET INR BY RATIO (test code = INDICATIO N Indication INR) INR1. Prophylax is of venous thrombos is 2.0 - 3.0 (orthoped ic surgery), Proph ylaxis of venous throm bosis (other than hig h-risk surgery), Treat ment of Deep Vein Thrombosis/Pulm onary Embolism, Preve ntion of systemic emb olism - Tissue heart va lves, Acute Myocardia l Infarction (to prevent systemic emboli sm), Valvular heart disease, Atrial Fibrillation, Bileaflet mecha nical valve in aortic position.2. Mec hanical prosthetic valv es (high risk), 2. 5 - 3.5 Presence of Lup us Anticoagulant o r Antiphospholipi d Antibodies, Pre vention of systemic emb olism - Acute Myocardia l Infarction (to prevent recurrent infar ct). BASIC METABOLIC [id number] 13:25:00 Test Item Value Reference Range Interpretation Comments SODIUM (test code = 141 mEq/L 134-147 N NA) POTASSIUM (test code 4.2 mEq/L 3.4-5.0 N = K) CHLORIDE (test code 106 mEq/L 100-108 N = CL) CARBON DIOXIDE (test 30 mEq/l 21-33 N code = CO2) ANION GAP (test code 9 0-20 N = GAP) GLUCOSE (test code = 109 mg/dL 70-110 N GLU) BLOOD UREA NITROGEN 20 mg/dL 7-18 H (test code = BUN) GLOMERULAR 54.5 70-80 L The Glomerular FILTRATION RATE Filtration R ate is a (test code = GFR) calculated parameterbased on serum Creatinine, pat ient age and sex. GFR va luesless than 60 mL/min/ 1.73 square meters a re indicative ofCh ronic Kidney Disease. Values less than 15 mL/min/1.73squa re meters indicate Kidney failure. The calculation forGFR is based on the CKD-EPI (2020) calculat ion. This formulais race indifferent and is the recommended for nelsy for GFRby the Natio nal Kidney Foundati on for Adults.The GFR will not calculate if th e sex is unknown or if thepatient's ag e is <18 years. CREATININE (test 1.3 mg/dL 0.6-1.3 N code = CREAT) CALCIUM (test code = 9.9 mg/dL 8.0-10.5 N CA) [id number] 13:25:00 Test Item Value Reference Range Interpretation Comments ALBUMIN (test code = ALB) 4.10 g/dL 3.4-5.0 N B-TYPE NATRIURETIC [id number] 13:24:00 Test Item Value Reference Range Interpretation Comments B-TYPE NATRIURETIC PEPTIDE (test 66.0 PG/ML 0-100 N code = BNP) - XR CHEST 2 [id number] [facility] 1940 Sex: M FAX: Cheko Jones MD [phone] [place]: St: PRE FAX: Ethan Walsh MD [phone] FAX: Drew Conde MD [phone] Name: LEI SIMON [facility] : 1940 Age/S: 82/M [address] [place] [address] Unit #: [id number] Loc: [place] [address] Phys: Ethan Walsh MD Acct: [id number] Dis Date: Status: PRE IN PHONE #: [phone] Exam Date: 08/13/2022 1212 FAX #: [phone] Reason: PREOP EXAMS: CPTCODE: [id number] XR CHEST 2 V 90318 PROCEDURE INFORMATION: Exam: XR Chest Exam date and time: 08/13/2022 12:10 PM Age: 82 years old Clinical indication: Other: Preop TECHNIQUE: Imaging protocol: Radiologic exam of the chest. Views: 2 views. PA and Lateral COMPARISON: CT HEART W CN ART/GRAFTS 07/04/2022 10:12 AM FINDINGS: Lungs: There are normal lung volumes without consolidation or interstitial opacities. There is a small calcified granuloma at the lateral left lung base. Pleural spaces: Unremarkable.No pleural effusion. No pneumothorax. Heart/Mediastinum: The heart size is normal. The pulmonary vasculature is normal. The mediastinal contour is normal. The trachea is midline. Bones/joints: No acuteabnormality seen. IMPRESSION: No acute cardiopulmonary findings. at 1227 Reported and signed by: Jeremiah Delgadillo M.D. CC: Cheko Montero MD; Ethan Walsh MD; Drew Magallanes MD Technologist: RT Umer(Kenia) Trnscrd Date/Time/By: 08/13/2022 (1227) : By: Radha.TDO Orig Print D/T: S: 08/13/2022 (7089) PAGE 1 Signed Report- CTA ABD PEL W [id number] 00:00[facility]00 [facility] 1940 Sex: M Name:LEI SIMON [facility] : 1940 Age/S: 82 / M [address] [place] [address] Unit #: [id number] Loc: [facility] [place] [address] Phys: Arya Horowitz DIRECTOR COMMUNICATIONS Acct: [id number] Dis Date: Status: DEP CLI PHONE #: [phone] Exam Date: 07/04/2022 1057 FAX #: [phone] Reason: AVR EXAMS: CPT CODE: [id number] CTA ABD PEL W CONT 89718 PROCEDURE INFORMATION: Exam: CTA Heart and Coronary Arteries Without and With C ontrast Exam date and time: 07/04/2022 10:12 AM Age: 82 years old Clinical indication: Other: Aortic stenosis TECHNIQUE: Imaging protocol: Computed tomographic angiography of the heart, coronary arteries and bypass grafts (when present) without and with contrast including 3D image postprocessing (including evaluation of cardiac structure and morphology, assessment of cardiac function, and evaluation of venous structures, if performed). 3D rendering (Not supervised by radiologist): MIP and/or 3D reconstructed images were created by the technologist. Radiation optimization: All CT scans at this facility use at least one of these dose optimization techniques: automated exposure control; mA and/or kV adjustment per patient size (includes targeted exams where dose is matched to clinical indication); or iterative reconstruction. Contrast material: ISOVUE 370; Contrast volume: 100 ml; Contrast route: INTRAVENOUS (IV); Other technique: 3D renderinD reconstructed images were created, reviewed and saved. REPORTING DATA: Count of CT and Cardiac NM exams in prior 12 months: This patient has received 0known CTs and 0 known cardiac nuclear medicine studies in the 12 months prior to the current study. COMPARISON: No relevant prior studies available. FINDINGS: PHASE OF CARDIAC CYCLE MEASUREMENTS OBTAINED: 30% of the R- R interval Aortic valve morphology: Tricuspid Valve calcification: Moderate burden.Aortic valve calcium score: 912 AORTIC ANNULAR MEASUREMENTS: Annular area: 438 mm2 Perimeter: 85 mm Max diameter: 28 mm Min diameter: 19 mm Annular/Subannular calcification: None Mitral annular calcification: None Height of left main above annular plane: 16 mm Height of RCA above annular plane: 17 mm Mid ascending aorta diameter: 33 mm PAGE 1 Signed Report (CONTINUED) Name: LEI SIMON [facility] Jada Oconnor : 1940 Age/S: 82 / M [address] [place] [address] Unit #: [id number] Loc: [place] [address] Phys: Arya Horowitz DIRECTOR COMMUNICATIONS Acct: [id number] Dis Date: Status: DEP CLI PHONE #: [phone] Exam Date: 11/2022 1057 FAX #: [phone] Reason: AVR EXAMS: CPT CODE: [id number] CTA ABD PEL W CONT 67893 (Continued) LA chamber size: Mildly dilated. Myocardium: No calcification or fatty metaplasia to suggest prior infarct. Coronary arteries: Mild burden of calcified coronary plaque. Pericardium: No thickening, calcification or effusion. IMPRESSION: Aortic root measurements provided for TAVR planning. Aortic annular area: 438 mm2 High risk aortic root features: None. PROCEDURE INFORMATION: Exam: CTA Chest Without And With Contrast CTA Abdomen and Pelvis Without And With Contrast Exam date and time: 07/04/2022 10:12 AM Age: 82 years old Clinical indication: Other: Aortic stenosis TECHNIQUE: Imaging protocol: Computed tomographic angiography of the chest without and with contrast. Computed tomographic angiography of the abdomen and pelvis without and with contrast. 3D rendering(Not supervised by radiologist): MIP and/or 3D reconstructed images were created by the technologist. Radiation optimization: All CT scans at this facility use at least one of these dose optimization techniques: automated exposure control; mA and/or kV adjustment per patient size (includes targeted exams where dose is matched to clinical indication); or iterative reconstruction. Contrast material: ISOVUE 370; Contrast volume: 100 ml; Contrast route: INTRAVENOUS (IV); REPORTING DATA: Count of CT andCardiac NM exams in prior 12 months: This patient has received 0 known CTs and 0 known cardiac nuclear medicine studies in the 12 months prior to the current study. COMPARISON: No relevant prior studies available. FINDINGS: VASCULATURE: Pulmonary arteries: Normal. No pulmonary emboli. Aorta: No aortic aneurysm. No aortic dissection. Celiac trunk and mesenteric arteries: No occlusion or significant stenosis. Renal arteries: No occlusion or significant stenosis. Right iliac arteries: No occlusion or significant stenosis. PAGE 2 Signed Report (CONTINUED) Name: LEI SIMON [facility] [place] : 1940 Age/S: 82 / M [address] [place] [address] Blvd Unit #: [id number] Loc: [facility] [address] Phys: Arya Horowitz NP Acct: [id number] Dis Date: Status: DEP CLI PHONE #: [phone] Exam Date: 07/04/2022 1057 FAX #: [phone] Reason: AVR EXAMS: CPT CODE: [id number] CTA ABD PEL W CONT 15265 (Continued) Left iliac arteries: No occlusion or significant stenosis. CHEST: Lungs: Unremarkable. No consolidation. No masses. Pleural spaces: Unremarkable. No pneumothorax. No pleural effusion. ABDOMEN AND PELVIS: Liver: No mass. There is hepatic steatosis. Gallbladder and bile ducts: Cholelithiasis is present. Pancreas: Unremarkable. No mass. No ductal dilation. Spleen: Unremarkable. No splenomegaly. Adrenal glands: Unremarkable. No mass. Kidneys and ureters: Unremarkable. No solid mass. No hydronephrosis. Stomachand bowel: Colonic diverticulosis is present. Appendix: No evidence of appendicitis. Intraperitonealspace: Unremarkable. No free air. No significant fluid collection. Urinary bladder: Unremarkable. Nomass. Reproductive: Unremarkable as visualized. Lymph nodes: Unremarkable. No enlarged lymph nodes. Bones/joints: Unremarkable. No acute fracture. Soft tissues: Unremarkable. IMPRESSION: 1. The aorta and bilateral iliofemoral arteries are widely patent without significant stenosis. 2. Cholelithiasis.3. Colonic diverticulosis. COMMENTS: Unless otherwise specified, incidental findings do not require dedicated imaging and follow-up. Electronically Signed by Steve Ferrell on 2022 at 0519 Reported and signed by: Gerardo Ferrell M.D. CC: Cheko Montero MD; Arya Horowitz DIRECTOR COMMUNICATIONS; Drew Magallanes MD Technologist:Indio Abreu, RT(R)(CT) CTDI: DLP: Trnscb Date/Time: 07/05/2022 (518) [id number].[id number] Orig Print D/T: S: 07/05/2022 (1320) PAGE 3 Signed Report- CT ANGIO [id number] 00:00:00[facility] : 1940 Sex: M [facility] 1940 Age/S: 82 / M [address] [place] [address] Blvd Unit #: [id number] Loc: [place] [address] Phys: Arya Horowitz DIRECTOR COMMUNICATIONS Acct: [id number] Dis Date: Status: DEP CLI PHONE #: [phone] Exam Date: 07/04/2022 1057 FAX #: [phone] Reason: AVR EXAMS: CPT CODE: [id number] CTANGIO CHEST 12555 PROCEDURE INFORMATION: Exam: CTA Heart and Coronary Arteries Without and With Contrast Exam date and time: 07/04/2022 10:12 AM Age: 82 years old Clinical indication: Other: Aortic stenosis TECHNIQUE: Imaging protocol: Computed tomographic angiography of the heart, coronary arteries and bypass grafts (when present) without and with contrast including 3D image postprocessing (including evaluation of cardiac structure and morphology, assessment of cardiac function, and evaluation of venous structures, if performed). 3D rendering (Not supervised by radiologist): MIP and/or 3D reconstructed images were created by the technologist. Radiation optimization: All CT scans at this facility use at least one of these dose optimization techniques: automated exposure control; mA and/or kV adjustment per patient size (includes targeted exams where dose is matched to clinical indication); or iterative reconstruction. Contrast material: ISOVUE 370; Contrast volume: 100 ml; Contrast route: INTRAVENOUS (IV); Other technique: 3D renderinD reconstructed images were created, reviewed and saved.REPORTING DATA: Count of CT and Cardiac NM exams in prior 12 months: This patient has received 0 known CTs and 0 known cardiac nuclear medicine studies in the 12 months prior to the current study. COMPARISON: No relevant prior studies available. FINDINGS: PHASE OF CARDIAC CYCLE MEASUREMENTS OBTAINED: 30% of the R- R interval Aortic valve morphology: Tricuspid Valve calcification: Moderate burden. Aortic valve calcium score: 912 AORTIC ANNULAR MEASUREMENTS: Annular area: 438 mm2 Perimeter: 85 mm Max diameter: 28 mm Min diameter: 19 mm Annular/Subannular calcification: None Mitral annular calcification: None Height of left main above annular plane: 16 mm Height of RCA above annular plane: 17 mm Mid ascending aorta diameter: 33 mm PAGE 1 Signed Report (CONTINUED) Name: [facility] : 1940 Age/S: 82 / M [address] [place] [address] Blvd Unit #: [id number] Loc: [place] [address] Phys: Arya Horowitz DIRECTOR COMMUNICATIONS Acct: [id number] Dis Date: Status: DEP CLI PHONE #: [phone] Exam Date: 07/04/2022 1057 FAX #: [phone] Reason: AVR EXAMS: CPT CODE: [id number] CT ANGIO CHEST 80272 (Continued)LA chamber size: Mildly dilated. Myocardium: No calcification or fatty metaplasia to suggest prior infarct. Coronary arteries: Mild burden of calcified coronary plaque. Pericardium: No thickening, calci fication or effusion. IMPRESSION: Aortic root measurements provided for TAVR planning. Aortic annular area: 438 mm2 High risk aortic root features: None. PROCEDURE INFORMATION: Exam: CTA Chest Without And With Contrast CTA Abdomen and Pelvis Without And With Contrast Exam date and time: 07/04/2022 10:12 AM Age: 82 years old Clinical indication: Other: Aortic stenosis TECHNIQUE: Imaging protocol: Computed tomographic angiography of the chest without and with contrast. Computed tomographic angiography of the abdomen and pelvis without and with contrast. 3D rendering (Not supervised by radiologist): MIP and/or 3D reconstructed images were created by the technologist. Radiation optimization: All CT scans at this facility use at least one of these dose optimization techniques:automated exposure control; mA and/or kV adjustment per patient size (includes targeted exams where dose is matched to clinical indication); or iterative reconstruction. Contrast material: ISOVUE 370; Contrast volume: 100 ml; Contrast route: INTRAVENOUS (IV); REPORTING DATA: Count of CT and Cardiac NM exams in prior 12 months: This patient has received 0 known CTs and 0 known cardiac nuclear medicine studies in the 12 months prior to the current study. COMPARISON: No relevant prior studies available. FINDINGS: VASCULATURE: Pulmonary arteries: Normal. No pulmonary emboli. Aorta: No aortic aneurysm.No aortic dissection. Celiac trunk and mesenteric arteries: No occlusion or significant stenosis. Renal arteries: No occlusion or significant stenosis. Right iliac arteries: No occlusion or significantstenosis. PAGE 2 Signed Report (CONTINUED) Name: LEI SIMON : 1940 Age/S:82 / M [address] [place] [address] Unit #: [id number] Loc: [place] [address] Phys: Arya Horowitz NP Acct:[id number] Dis Date: Status: DEP CLI PHONE #: [phone] Exam Date: 07/04/2022 1057 FAX #: [phone] Reason: AVR EXAMS: CPT CODE: [id number] CT ANGIO CHEST 92792 (Continued) Left iliac arteries: No occlusion or significant stenosis. CHEST: Lungs: Unremarkable. No consolidation. No masses. Pleural spaces: Unremarkable. No pneumothorax. No pleural effusion. ABDOMEN AND PELVIS: Liver: No mass. There is hepatic steatosis. Gallbladder and bile ducts: Cholelithiasis is present. Pancreas: Unremarkable. No mass. No ductal dilation. Spleen: Unremarkable. No splenomegaly. Adrenal glands: Unremarkable. No mass. Kidneys and ureters: Unremarkable. No solid mass. No hydronephrosis. Stomach and bowel: Colonic diverticulosis is present. Appendix: No evidence of appendicitis. Intraperitoneal space: Unremarkable. No free air. No significant fluid collection. Urinary bladder: Unremarkable. No mass. Reproductive: Unremarkable as visualized. Lymph nodes: Unremarkable. No enlarged lymph nodes. Bones/joints: Unremarkable. No acute fracture. Soft tissues: Unremarkable. IMPRESSION: 1. The aorta and bilateral iliofemoral arteries are widely patent without significant stenosis. 2. Cholelithiasis. 3. Colonic diver ticulosis. COMMENTS: Unless otherwise specified, incidental findings do not require dedicated imaging and follow-up. at 0519 Reported and signed by: Gerardo Ferrell M.D. CC: Cheko Montero MD; Arya Horowitz DIRECTOR COMMUNICATIONS; Drew Magallanes MD Technologist:Indio Abreu, RT(R)(CT) CTDI: DLP: Trnscb Date/Time: 07/05/2022 (0519) [id number].[email or web address] Orig Print D/T: S: 07/05/2022 (0520) PAGE 3 Signed Report- CTA HEART W CN ART/[id number] [facility]00 [facility] 1940 Sex: M Name:LEI SIMON [facility] [place] : 1940 Age/S: 82 / M [address] [place] [address] Blvd Unit #: [id number] [place]: [place] [address] Phys: Arya Horowitz DIRECTOR COMMUNICATIONS Acct: [id number] Dis Date: Status: DEP CLI PHONE #: [phone] Exam Date: 07/04/2022 1053 FAX #: [phone] Reason: EXAMS: CPT CODE: [id number] CTA HEART W CN ART/GRAFTS 77359 PROCEDURE INFORMATION: Exam: CTA Heart and Coronary Arteries Without and With Contrast Exam date and time: 07/04/2022 10:12 AM Age: 82 years old Clinical indication: Other: Aortic stenosis TECHNIQUE: Imaging protocol: Computed tomographic angiography of the heart, coronary arteries and bypass grafts (when present) without and with contrast including 3D image postprocessing (including evaluation of cardiac structure and morphology, assessment of cardiac function, and evaluation of venous structures, if performed). 3D rendering (Not supervised by radiologist): MIP and/or 3D reconstructed images were created by the technologist. Radiation optimization: All CT scans at this facility use at least one of these dose optimization techniques: automated exposure control; mA and/or kV adjustment per patient size (includes targeted exams where dose is matched to clinical indication); or iterative reconstruction. Contrast material: ISOVUE 370; Contrast volume: 100 ml; Contrast route: INTRAVENOUS (IV); Other technique: 3D renderinD reconstructed images were created, reviewed and saved. REPORTING DATA: Count of CT and Cardiac NM exams in prior 12 months: This patient has received 0 known CTs and 0 known cardiac nuclear medicine studies in the 12 months prior to the current study. COMPARISON: No relevant prior studies available. FINDINGS: PHASE OF CARDIAC CYCLE MEASUREMENTS OBTAINED: 30% of the R-R interval Aortic valve morphology: Tricuspid Valve calcification: Moderate burden. Aortic valve calcium score: 912 AORTIC ANNULAR MEASUREMENTS: Annular area: 438 mm2 Perimeter: 85mm Max diameter: 28 mm Min diameter: 19 mm Annular/Subannular calcification: None Mitral annular calcification: None Height of left main above annular plane: 16 mm Height of RCA above annular plane: 17mm Mid ascending aorta diameter: 33 mm PAGE 1 Signed Report (CONTINUED) Name: LEI SIMON [facility] Alloy : 1940 Age/S: 82 / M [address] [place] [address] Blvd Unit #: [id number] Loc: [place] [address] Phys: Arya Horowitz DIRECTOR COMMUNICATIONS Acct: [id number] Dis Date: Status: DEP CLI PHONE #: [phone] Exam Date: 07/04/2022 1053 FAX #: [phone] Reason: EXAMS: CPT CODE: [id number] CTA HEART W CN ART/GRAFTS 46797 (Continued) LA chamber size: Mildly dilated. Myocardium: No calcification or fatty metaplasia tosuggest prior infarct. Coronary arteries: Mild burden of calcified coronary plaque. Pericardium: No t hickening, calcification or effusion. IMPRESSION: Aortic root measurements provided for TAVR planning. Aortic annular area: 438 mm2 High risk aortic root features: None. PROCEDURE INFORMATION: Exam: CTA Chest Without And With Contrast CTA Abdomen and Pelvis Without And With Contrast Exam date and time: 07/04/2022 10:12 AM Age: 82 years old Clinical indication: Other: Aortic stenosis TECHNIQUE: Imaging protocol: Computed tomographic angiography of the chest without and with contrast. Computed tomographic angiography of the abdomen and pelvis without and with contrast. 3D rendering (Not supervised by radiologist): MIP and/or 3D reconstructed images were created by the technbg luciano. Radiation optimization: All CT scans at this facility use at least one of these dose optimization techniques: automated exposure control; mA and/or kV adjustment per patient size (includes targeted exams where dose is matched to clinical indication); or iterative reconstruction. Contrast material: ISOVUE 370; Contrast volume: 100 ml; Contrast route: INTRAVENOUS (IV); REPORTING DATA: Count of CT and Cardiac NM exams in prior 12 months: This patient has received 0 known CTs and 0 known cardiacnuclear medicine studies in the 12 months prior to the current study. COMPARISON: No relevant prior studies available. FINDINGS: VASCULATURE: Pulmonary arteries: Normal. No pulmonary emboli. Aorta: No aortic aneurysm. No aortic dissection. Celiac trunk and mesenteric arteries: No occlusion or significant stenosis. Renal arteries: No occlusion or significant stenosis. Right iliac arteries: No occlusion or significant stenosis. PAGE 2 Signed Report (CONTINUED) Name: LEI SIMON [facility] Alloy : 1940 Age/S: 82 / M [address] [place] [address] Unit #: [id number] Loc: [place] [address] Phys: Arya Horowitz DIRECTOR COMMUNICATIONS Acct: [id number] Dis Date: Status: DEP CLI PHONE #: [phone] Exam Date: 07/04/2022 1053 FAX #: [phone] Reason: EXAMS: CPT CODE: [id number] CTA HEART W CN ART/GRAFTS 80218 (Continued) Left iliac arteries: No occlusion or significant stenosis. CHEST: Lungs: Unremarkable. No consolid ation. No masses. Pleural spaces: Unremarkable. No pneumothorax. No pleural effusion. ABDOMEN AND PELVIS: Liver: No mass. There is hepatic steatosis. Gallbladder and bile ducts: Cholelithiasis is present. Pancreas: Unremarkable. No mass. No ductal dilation. Spleen: Unremarkable. No splenomegaly. Adrenal glands: Unremarkable. No mass. Kidneys and ureters: Unremarkable. No solid mass. No hydronephrosis. Stomach and bowel: Colonic diverticulosis is present. Appendix: No evidence of appendicitis. Intraperitoneal space: Unremarkable. No free air. No significant fluid collection. Urinary bladder: Unremarkable. No mass. Reproductive: Unremarkable as visualized. Lymph nodes: Unremarkable. No enlarged lymph nodes. Bones/joints: Unremarkable. No acute fracture. Soft tissues: Unremarkable. IMPRESSION: 1. The aorta and bilateral iliofemoral arteries are widely patent without significant stenosis. 2. Cholelithiasis. 3. Colonic diverticulosis. COMMENTS: Unless otherwise specified, incidental findings do notrequire dedicated imaging and follow-up. at 0519 Reported and signed by: Gerardo Ferrell M.D. CC: Cheko Montero MD; Arya Horowitz DIRECTOR COMMUNICATIONS; Drew Magallanes MD Technologist:Indio Abreu, RT(R)(CT) CTDI: DLP: Trnscb Date/Time: 07/05/2022 (518) [id number] Orig Print D/T: S: 07/05/2022 (2420) PAGE 3 Signed ReportCOVID 19 Asymptomatic IH [id number] 12:06:00 Test Item Value Reference Range Interpretation Comments COVID 19 Asymptomatic Negative Negative A nega tive result is IH AG (test code = presumpti ve and should COVNONPUIAG) be confirmedwit h an FDA authorized mole cular assay, if neces martina forpatient lizeth gement.A positive result does not rule out co-inf ections withother patho gens.This test detects roel th viable (live) and non-viable,SARS -CoV, and SARS-CoV-2. Princess t performance dep ends on theamount of vi martin (antigen) in th e sample.This pirncess t has not been FDA cleare d or approved; the t est hasbeen authori zed by FDA under an Em ergency Use Authorizati on(EUA) for use by labo ratories certified under the CLIA thatmeet the requirements to perform moderate, high or waivedcomplexit y tests. P [phone] 5481F [phone] Notes Date/Time Note Provider Source 2022-08-15 10:49:00-00:00 [id number] [place] [address] PATIENT NAME: LEI SIMON ADMIT DATE: 08/14/22 ACCOUNT NO: [id number] [place] [facility] [place]GE[place] 82 REPORT TYPE: eECHOCARDIOGRAM REPORT SEX: M ADMITTING PHYSICIAN:Crystal Fermin MD ATTENDING PHYSICIAN:Crystal Fermin MD *[address] [address] Transthoracic Echocardiogram Patient: Lei Simon Study Date: 08/15/2022 BP: 119 / 67 Location: [facility] URN: [id number] : 1940 Age: 82 Height: 67 in / 170.2 cm Gender: M Weight: 178 .6 lb / 81.2 kg BMI/BSA: 28 kg/m 2 / 1.93 m 2 *Ordering Physician: * Chinyere Salomon NP *Interpreting Physician: * Emory Yepez *Director Communications: * Iesha Reis Indications: POST TAVR. Study data: Transthoracic echocardiogram. Proced ure: Transthoracic echocardiography was performed. Image quality wa s adequate. Complete 2D, complete spectral Doppler, and color Doppler . Location: Bedside. Patient status: Inpatient. Patient room number: 3352. Study status: AMAN. Findings Left ventricle: The cavity size is normal. Wall thickness is mildly increased. Systolic function is normal. The kourtney mated ejection fraction is 55-60%. Wall motion is normal; there are no r egional wall motion abnormalities. Doppler parameters are consistent with abnormal left ventricular relaxation (grade 1 diastolic dysfun ction). Right ventricle: The cavity size is normal. Syst olic function is PATIENT NAME: LEI SIMON 41 normal. Left atrium: The atrium is mildly dilated. Right atrium: The atrium is normal in size. Aorta: Aortic root: The aortic root is normal in size. Aortic valve: There is a bioprosthetic valve. Post TAVR: There is a Dong YESSENIA 3, 26 mm tr anscatheter valve that is well seated in the aortic valve position. The LVOT diameter is 2.1 cm. The peak aortic gradient is 23.5 mmHg. The m lynn aortic gradient is 11.3 mmHg. The LVOT VTI is 26.1 cm. The AV VTI i s 49.8 cm. The aortic valve area is 1.8 cm 2. The peak jet velocity is 2.4 m/sec. There is no perivalvular leak noted. There is no evidence of stenosis. There is no regurgitation. Mitral valve: The valve is structurally normal. There is no evidence of stenosis. There is mild regurgitatio n. Tricuspid valve: The valve is structurally volodymyr l. There is mild regurgitation. Pulmonic valve: The valve is structurally normal . There is no regurgitation. Pericardium: A trivial pericardial effusion is i dentified. Pulmonary arteries: The main pulmonary artery is normal-sized. Systemic veins: Inferior vena cava: The vessel is normal in size . Measurements Left ventricle Value Ref ALFREDO, LAX 4.0 cm 4.2 - 5.8 ESD, LAX 2.8 cm 2.5 - 4.0 ESD/bsa, LAX 1.4 cm/m 2 1.3 - 2.1 FS, LAX 30 % 25 - 43 ESD/bsa major ax, 2.9 cm/m 2 -------- A4C ALFREDO/bsa minor ax, 2.9 cm/m 2 -------- A4C ALFREDO major ax, A2C 7.3 cm -------- ALFREDO/bsa major ax, 3.8 cm/m 2 -------- A2C PW, ED 1.2 cm 0.6 - 1.0 IVS/PW, ED 0.97 -------- EF 58 % 52 - 72 E', lat steffen, TDI 9.9 cm/sec >=10.0 E/e', lat steffen, TDI 10 -------- E', med steffen, TDI 6.6 cm/sec >=7.0 E/e', med steffen, TDI 15 -------- E', avg, TDI 8.2 cm/sec -------- E/e', avg, TDI 12 <=14 LVOT Value Ref PATIENT NAME: LEI SIMON 40 Diam, S 2.07 cm -------- Area 3.4 cm 2 -------- Peak aidan, S 1.06 m/sec -------- Mean aidan, S 0.65 m/sec -------- VTI, S 26.1 cm -------- Peak grad, S 5 mm Hg -------- Mean grad, S 2 mm Hg -------- SV 88 ml -------- Qs 5.96 L/min -------- Qs/bsa 3.1 L/(min-m 2) -------- SV/bsa 45 ml/m 2 -------- Ventricular septum Value Ref IVS, ED 1.2 cm 0.6 - 1.0 Right ventricle Value Ref ALFREDO, LAX 2.6 cm -------- Pressure, S 37 mm Hg -------- RVOT Value Ref Peak v, S 0.77 m/sec -------- Peak grad, S 2 mm Hg -------- Left atrium Value Ref Vol/bsa, ES, 1-p 36 ml/m 2 12 - 37 A4C Vol, ES, 2-p 73 ml -------- Vol/bsa, ES, 2-p 38 ml/m 2 16 - 34 Vol/bsa, ES, A/L 37 ml/m 2 16 - 34 AP dim, ES MM 3.8 cm 3.0 - 4.0 LA/Ao root ratio, 1.12 -------- MM Aortic valve Value Ref Leaflet sep, MM 1.67 cm -------- Peak v, S 2.42 m/sec -------- Mean v, S 1.57 m/sec -------- VTI, S 49.8 cm -------- Mean grad, S 11.3 mm Hg -------- Peak grad, S 23.5 mm Hg -------- LVOT/AV, VTI ratio 0.52 -------- MK, VTI 1.76 cm 2 -------- LVOT/AV, Vpeak 0.44 -------- ratio MK, Vmax 1.48 cm 2 -------- Mitral valve Value Ref E-septal 0.6 cm -------- separation E-F slope 0.07 m/sec -------- Peak E 0.08 m/sec -------- Peak A 1.13 m/sec -------- PATIENT NAME: LEI SIMON 41 Decel time 229 ms -------- PHT 59 ms -------- Peak E/A ratio 0.87 -------- MVA, PHT 3.8 cm 2 -------- Pulmonic valve Value Ref NH v, ED 0.68 m/sec -------- Tricuspid valve Value Ref TR peak v 2.61 m/sec <=2.8 Peak RV-RA grad, S 27 mm Hg -------- Aortic root Value Ref Root diam, ED MM 3.37 cm -------- Pulmonary artery Value Ref Pressure, S 32.8 mm Hg -------- Systemic veins Value Ref Estimated CVP 10 mm Hg -------- Conclusions Summary: 1. Left ventricle: The cavity size is normal. Wa ll thickness is mildly increased. Systolic function is normal. The est imated ejection fraction is 55-60%. Wall motion is normal; ther e are no regional wall motion abnormalities. Doppler parameters are co nsistent with abnormal left ventricular relaxation (grade 1 diastolic dysfunction). 2. Right ventricle: The RV pressure during systo le by Doppler is 37 mm Hg. 3. Left atrium: The atrium is mildly dilated. 4. Aortic valve: There is a bioprosthetic valve. There is no perivalvular leak noted. The peak systolic velo city is 2.42 m/sec. The mean systolic gradient is 11.3 mm Hg. The v alve area by the velocity-time integral method is 1.76 cm 2. 5. Mitral valve: There is mild regurgitation. 6. Tricuspid valve: There is mild regurgitation. 7. Pericardium, extracardiac: A trivial pericard ial effusion is identified. Prepared and electronically signed by Emory Yepez MD 08/15/2022 10:49 at 1049 PATIENT NAME: LEI SIMON 40 2022-08-15 09:25:00-00:00 HCACL [facility] ([facility]) Discharge Summary REPORT#:[id number] REPORT STATUS: Signed DATE:08/15/22 TIME: 924 PATIENT: LEI SIMON UNIT #: [id number] ROOM/BED: [place] [address] : 39 AGE: 82 SEX: M ATTEND: Claritza Yepez MD ADM AUTHOR: Anurag Dejesus PICTURE ENGRAVER * ALL edits or amendments must be made on the ectronic/computer document * Anurag Dejesus 08/15/22 0925: PCP PCP Discharge to: home General Information Discharge date: 08/15/22 Discharge diagnosis: Severe Symptomatic Aortic Stenosis Hospital course: This is a 82 year old male that presented for el ective transcatheter aortic valve replacement and underwent successful impla nt of a 26 mm Yessenia S3 Ultra valve. The patient was monitored overnight and d id well. The labs and vital signs reviewed bilateral groins CDI without blee ding or hematoma. 1. Severe Symptomatic Aortic Stenosis S/p TAVR 34 mm Evolute Medtronic, successful imp lant. Patient monitored overnight. Groin sites CDI, sinus rhythm no bleeding noted. Labs and vital signs reviewed. Cardiology reviewed echocardiogram and OK for di scharge. F/u in clinic with Cardiology and we will follow with Structural Heart team. Med Rec PCP PCP: PCP: Cheko Montero MD Med Rec Discharge meds: Continue taking these medications: LOSARTAN/HCTZ (HYZAAR 100/12.5 MG) 100 MG-12.5 M G TAB 1 TABLET ORAL DAILY. amLODIPine (NORVASC) 5 MG TAB 5 MILLIGRAM ORAL BEDTIME. ATORVASTATIN (LIPITOR) 20 MG TAB 20 MILLIGRAM ORAL BEDTIME. traMADol (ULTRAM) 50 MG TAB 50 MILLIGRAM ORAL EVERY 8 HR NEEDED. as need ed for PAIN GABAPENTIN (NEURONTIN) 300 MG CAP 300 MILLIGRAM ORAL FOUR TIMES A DAY. as needed for PAIN Start taking the following new medications: CLOPIDOGREL (PLAVIX) 75 MG TAB 75 MILLIGRAM ORAL DAILY. Days = 30 Qty = 30 Refills = 3 ASPIRIN (ASPIRIN) 81 MG TAB.CHEW 81 MILLIGRAM ORAL DAILY. Days = 30 Qty = 30 Refills = 3 Objective VS/I O Last Documented: Result Date Time Pulse Ox 95 08/15 710 B/P 142/69 08/15 710 B/P Mean 93 08/15 07 Temp 36.6 08/15 07 Pulse 68 08/15 0711 Resp 16 08/15 07 O2 Delivery Room air 08/15 0352 O2 Flow Rate 2 08/14 1037 24 hour I O ending at 0700: 08/15 0700 08/14 1900 Intake Total 240 Output Total 650 Balance -410 Intake, Oral 240 Number Voids 3 Output, Urine 650 Patient 78.8 kg Weight Weight Bed scale Measurement Method PATIENT WEIGHT: Weight (lb): 173 Weight (oz): 11.59 Weight (kg): 78.800 General appearance: alert, awake, oriented Cardiovascular: regular rate rhythm Respiratory: clear to auscultation, no distress GI: soft, non-tender Extremities: moves all Neuro/VENDOR RELATIONSHIP MANAGER: alert, oriented X 3 Skin: dry Wound/incision: Location: Right groin suture removed by this DIRECTOR COMMUNICATIONS. No infect ion, bleeding, or hematoma. Dermabond applied and intact. Results Findings/Data: Laboratory Tests: 08/15 0339 Chemistry Sodium (134 - 147 mEq/L) 140 Potassium (3.4 - 5.0 mEq/L) 3.5 Chloride (100 - 108 mEq/L) 107 Carbon Dioxide (21 - 33 mEq/l) 26 Anion Gap (0 - 20) 10 BUN (7 - 18 mg/dL) 16 Creatinine (0.6 - 1.3 mg/dL) 0.9 Glomerular Filtr Rate (70 - 80) 84.7 H Glucose (70 - 110 mg/dL) 163 H Calcium (8.0 - 10.5 mg/dL) 8.6 Hematology WBC (4.5 - 11.0 x10 3/uL) 18.2 H RBC (4.00 - 5.60 x10 6/uL) 4.23 Hgb (12.5 - 16.9 g/dL) 13.3 Hct (37.5 - 50.7 %) 37.9 MCV (81.0 - 99.0 fL) 89.6 MCH (27.0 - 33.0 pg) 31.4 MCHC (33.0 - 37.0 g/dL) 35.1 RDW (11.5 - 14.5 %) 14.0 Plt Count (150 - 400 x10 3/uL) 204 MPV (7.0 - 9.0 fL) 11.2 H Neut % (Auto) (56.0 - 77.0 %) 85.4 H Lymph % (Auto) (14.0 - 32.0 %) 4.9 L Door % (Auto) (4.8 - 9.0 %) 8.9 Eos % (Auto) (0.3 - 3.7 %) 0.1 L Baso % (Auto) (0.0 - 2.0 %) 0.2 Neut # (Auto) (2.0 - 7.6 x10 3/uL) 15.56 H Lymph # (Auto) (1.0 - 3.8 x10 3/uL) 0.89 L Door # (Auto) (0.1 - 0.8 x10 3/uL) 1.62 H Eos # (Auto) (0.0 - 0.2 x10 3/uL) 0.01 Baso # (Auto) (0.0 - 0.2 x10 3/uL) 0.03 Abs Immat Gran (auto) (0.00 - 0.03 x10 3/uL) 0. 10 H Add Manual Diff NO Immature Gran % (0.0 - 2.0 %) 0.5 Nucleated RBC % (0 - 0 %) 0.0 Nucleated RBCs # (Man) (0.0 - 0.1 x10 3/uL) 0.0 0 Treatments Procedures Treatments Procedures: 1.Transcatheter aortic valve replacement (TAVR) utilizing # 26 Dong's Yessenia S3 Ultra pericardial valve via transfemoral appr oach with MAC. 2. Ascending aortogram 3. Placement of temporary pacing wire 4. Manta closure of right common femoral artery 5. 6-Canadian Angioseal closure of the left femora l artery Lab: Chemistry last 24 hrs: 08/15 338 Chemistry Sodium (134 - 147 mEq/L) 140 Potassium (3.4 - 5.0 mEq/L) 3.5 Chloride (100 - 108 mEq/L) 107 BUN (7 - 18 mg/dL) 16 Creatinine (0.6 - 1.3 mg/dL) 0.9 Glucose (70 - 110 mg/dL) 163 H Hematology last 24 hrs: 08/15 033 Hematology WBC (4.5 - 11.0 x10 3/uL) 18.2 H Hgb (12.5 - 16.9 g/dL) 13.3 Hct (37.5 - 50.7 %) 37.9 Plt Count (150 - 400 x10 3/uL) 204 Neut % (Auto) (56.0 - 77.0 %) 85.4 H Imaging: Recent Impressions: RADIOLOGY - XR CHEST 2 V 08/13 1212 Report Impression - Status: SIGNED Entered: 08/13/2022 1227 IMPRESSION: No acute cardiopulmonary findings. Impression By: Jada Guzman Discharge Instructions PCP PCP: PCP: Cheko Montero MD )( Discharge to: Home/Self Care Discharge Instructions Additional Discharge Routines: Attending Follow- Up )( Diet: Cardiac )( Activity: As Tolerated Follow-up Appointments Attending Physician: Attending Physician: Emory Yepez MD Attending physician follow up timeframe: In 1-2 weeks Emory Yepez 08/18/22 1803: Attestations Physician Attestation Agree w/findings plan: I have examined patient. I have reviewed records . I have gone over all the information in detail. I have reviewed a ll the cardiac labs as well as cardiac medications. I agree with above recommendations. Patient is status post successful TAVR using 26 millimeter S3 valve with no complications Postoperative day 1 echo rev iewed and showed normally functioning bioprosthetic valve with excellent hemodynamics Patient is stable to be discharged home today an d follow-up with the primary deputy chief executive in 1 week Emory Yepez MD, [facility], [facility] Crime Scene Specialist Structural Heart Neck Fitter Electronically Signed by Anurag Dejesus o n 08/15/22 at 1149 Electronically Signed by Emory Yepez MD o n 08/18/22 at 1806 RPT #:[id number] END OF REPORT 2022-08-15 09:04:00-00:00 [facility]ACL [facility] Cardiothoracic Surgery Prog REPORT#:[id number] REPORT STATUS: Signed DATE:08/15/22 TIME: 903 PATIENT: LEI SIMON UNIT #: [id number] ROOM/BED: [place] [address] : 39 AGE: 82 SEX: M ATTEND: Claritza Fermin MD ADM AUTHOR: Evonne Pizano Physic * ALL edits or amendments must be made on the el BlueMessagingronic/computer document * General Post-op: day 1 Status post: Procedure: 1.Transcatheter aortic valve replacem ent (TAVR) utilizing # 26 Dong's Yessenia S3 Ultra pe ricardial valve via transfemoral approach with MAC. 2. Ascending aortogram 3. Placement of temporary pacing wire 4. Manta closure of right common femoral artery 5. 6-Canadian Angioseal closure of the left femor al artery Subjective Chief complaint: Doing well. No complaints Review of Systems Additional notes: Constitutional: Negative for fever, chills, weig ht loss Skin: Negative for rash, negative for swelling n egative for any laceration HEENT: Denies hearing loss d enies any ear ringing denies any earache denies any sore throat denies any throat pain Respiratory: Denies dyspnea on exertion denies h emoptysis denies any cough denies any shortness of breath Cardiac: Denies chest pain, denies palpitations denies orthopnea GI: Denies constipation denies diarrhea : Denies hematuria denies dysuria denies flank pain Musculoskeletal: Denies any joint pain denies an y joint swelling denies any myalgia Hematologic: Denies any easy bruising, denies an y bleeding Endocrine: denies any night sweats, denies polyu elliott polydipsia Neurologic: Denies any lightheaded denies any he adache denies any confusion denies any dizziness Objective General VS/I O Last Documented: Result Date Time Pulse Ox 95 08/15 0711 B/P 142/69 08/15 0711 B/P Mean 93 08/15 0711 Temp 97.9 08/15 0711 Pulse 68 08/15 0711 Resp 16 08/15 0711 O2 Delivery Room air 08/15 0352 O2 Flow Rate 2 08/14 1037 24 hour I O ending at 0700: 08/15 0700 08/14 1900 Intake Total 240 Output Total 650 Balance -410 Intake, Oral 240 Number Voids 3 Output, Urine 650 Patient 78.8 kg Weight Weight Bed scale Measurement Method PATIENT WEIGHT: Weight (lb): 173 Weight (oz): 11.59 Weight (kg): 78.800 Physical Exam General appearance: alert, awake, oriented Wound/incision: Location: Bilateal Groins soft. No evidence for hematoma. HEENT: mucosal membranes moist Cardiovascular: BP/pulses equal bilat., regular rate rhythm Respiratory: aerating well Abdomen: soft, non-tender Extremities: dry, moves all Musculoskeletal: full range of motion Neuro/VENDOR RELATIONSHIP MANAGER: alert, oriented X 3 Diagnosis, Assessment Plan Free Text A P: This is an 82 year old gentleman with past [facility] [place] history of hypertension, hyperlipidemia, aortic valve stenosis an d secondary pulmonary hypertension. He has been experiencing increasing shortness of br eath on exertion for the past several months. Patient was seen by Dr Sona kelly Echocardiogram was done and revealed EF 60-65% with a mean gradient 40.7mmhg , and MK 0.9 cm2. Patient was presented in the structural heart co nferefle and deemed a good candidate for TAVR Assessment/plan 1. Aortic valve stenosis 2. Hypertension 3. Hyperlipidemia Patient is admitted for TAVR. The procedure was discussed with the patient prior. 08/15/22 S/P TAVR Patient doing well. Denies complaints Bilateral groin wounds are soft. No evidence for hematoma Respiratory: On room air Cardiac: Remains sinus rhythm Echo pending. We will plan for DC after echocardiogram interpr eted Patient was seen and examined at [facility] at 0935 at 1021 RPT #:[id number] END OF REPORT 2022-08-15 08:45:00-00:00 [id number] [place] [address] PATIENT NAME: LEI SIMON ADMIT DATE: 08/14/22 ACCOUNT NO: [id number] [place] [facility] [place]GE[place] 82 REPORT TYPE: eELECTROCARDIOGRAM REPORT SEX: M ADMITTING PHYSICIAN:Crystal Fermin MD ATTENDING PHYSICIAN:Emory Yepez MD Order: [id number] Test Reason : POST PCI Test Date/Time Stamp: SatAug 15 2022 08:45:42 Blood Pressure : / mmHG Vent. Rate : 078 BPM Atrial Rate : 078 BPM P-R Int : 180 ms QRS Dur : 076 ms QT Int : 388 ms P-R-T Axes : 035 029 034 degree s QTc Int : 442 ms Normal sinus rhythm Normal ECG Confirmed by MD NICOETHAN ([id number]) on 08/17/19 11:11:37 AM Referred By: Drew Magallanes Confirmed by:ETHAN RICHARDSON MD Electronically Signed by Ethan Walsh MD on 0 08/16/22 at 1111 PATIENT NAME: LEI SIMON 40 2022-08-15 07:30:00-00:00 [facility] ([facility]) History Physical - Adult REPORT#:[id number] REPORT STATUS: Signed DATE:08/15/22 TIME: 729 PATIENT: LEI SIMON UNIT #: [id number] ROOM/BED: [place] [address] : 39 AGE: 82 SEX: M ATTEND: Claritza Fermin MD ADM AUTHOR: Evonne Pizano Physic * ALL edits or amendments must be made on the Media[employer]/computer document * Evonne Pizano 08/15/22 0730: History of Present Illness HPI Chief complaint: Aortic stenosis HPI: This is an 82 year old gentleman with past [facility] of hypertension, hyperlipidemia, aortic valve stenosis an d secondary pulmonary hypertension. He has been experiencing increasing shortness of br eath on exertion for the past several months. Patient was seen by Dr Sona kelly Echocardiogram was done and revealed EF 60-65% with a mean gradient 40.7mmhg , and MK 0.9 cm2. Patient was presented in the structural heart co nference and deemed a good candidate for TAVR History Past medical history: Reports: Hypertension, Dyslipidemia. Smoking status for patients 13 years old or olde r: Never Smoker Medication/Allergy-Vaccine Hx Allergies: Coded Allergies: No Known Allergies (08/13/22) Review of Systems ROS comments: Constitutional: Negative for fever, chills, weig ht loss Skin: Negative for rash, negative for swelling n egative for any laceration HEENT: Denies hearing loss d enies any ear ringing denies any earache denies any sore throat denies any throat pain Respiratory: Dyspnea on exertion Cardiac: Denies chest pain, denies palpitations denies orthopnea GI: Denies constipation denies diarrhea : Denies hematuria denies dysuria denies flank pain Musculoskeletal: Denies any joint pain denies an y joint swelling denies any myalgia Hematologic: Denies any easy bruising, denies an y bleeding Endocrine: denies any night sweats, denies polyu elliott polydipsia Neurologic: Denies any lightheaded denies any he adache denies any confusion denies any dizziness Physical Exam VS/I O Vital Signs: Date Time Temp Pulse Resp B/P B/P Pulse O2 O2 F low FiO2 Mean Ox Delivery Rate 08/15 0711 97.9 68 16 142/69 93 95 08/15 0352 98.1 78 13 119/67 0.0 95 Room air 08/14 2353 98.2 86 13 119/66 0.0 95 Room air 08/14 1828 98.1 91 13 119/66 0.0 93 Room air 08/14 1037 Nasal 2 cannula 08/14 1027 97.8 24 hour I O ending at 0700: 08/15 0700 08/14 1900 Intake Total 240 Output Total 650 Balance -410 Intake, Oral 240 Number Voids 3 Output, Urine 650 Patient 78.8 kg Weight Weight Bed scale Measurement Method PATIENT WEIGHT: Weight (lb): 173 Weight (oz): 11.59 Weight (kg): 78.800 Free Text PE Notes Free Text PE Notes: General: well nourished, well groomed, no acute distress. HEENT: conjunctiva clear, ex traocular movement intact, PERRLA, sclera anicteric. normal dentition, gums, normal, oral mucosa with out pallor or cyanosis. Neck: no, JVD, trachea midline, no, lymphadenopa thy, neck supple, normal ROM. Respiratory: Clear to auscultation, no distress. Cardiovascular: regular rate and rhythm, 3/6 sys tolic ejection murmur Abdomen: Soft, non tender. No rebound. No guardi ng Extremities: dry, moves all. Musculoskeletal: Full range of motion, no CVA te nderness, no muscle spasm Skin: warm, dry, no, lesions, rash. Neurologic: Alert and oriented x3. Psychiatric: affect and demeanor normal Diagnosis, Assessment Plan Free Text DxA P Notes Free Text DxA P Notes: This is an 82 year old gentleman with past medi apolonia history of hypertension, hyperlipidemia, aortic valve stenosis an d secondary pulmonary hypertension. He has been experiencing increasing shortness of br eath on exertion for the past several months. Patient was seen by Dr Sona rojas d Echocardiogram was done and revealed EF 60-65% with a mean gradient 40.7mmhg , and MK 0.9 cm2. Patient was presented in the structural heart co nference and deemed a good candidate for TAVR Assessment/plan 1. Aortic valve stenosis 2. Hypertension 3. Hyperlipidemia Patient is admitted for TAVR. The procedure was discussed with the patient prior. The risk of the operation including , bleed ing, infection, heart attack, stroke, renal failure, dialysis, need for long-t erm rehabilitation was all discussed with the patient. The patient's questi ons were answered and the patient agreed to proceed with surgery Crystal Fermin 08/15/22 1017: Attestations Physician Attestation Agree w/findings plan: I have seen and examined Mr. Simon. I agree with the findings and plan as documented by MARIELY Jones. Briefly, 82 old gentleman with severe aortic krystina nosis being admitted to the hospital for TAVR. I had a long discussion with the patient, explained to him the procedure, risk involved, benefit, alternati ves, STS risk of, and complications. at 0903 at 1021 [facility] #:[id number] END OF REPORT 2022-08-14 09:11:00-00:00 [id number] [place] [address] PATIENT NAME: LEI SIMON ADMIT DATE: 08/14/22 ACCOUNT NO: [id number] [place] [facility] [place]GE: 82 REPORT TYPE: eELECTROCARDIOGRAM REPORT SEX: M ADMITTING PHYSICIAN:Crystal Fermin MD ATTENDING PHYSICIAN:Emory Yepez MD Order: [id number] Test Reason : TAVR Test Date/Time Stamp: SatAug 14 2022 09:11:29 Blood Pressure : / mmHG Vent. Rate : 069 BPM Atrial Rate : 069 BPM P-R Int : 182 ms QRS Dur : 084 ms QT Int : 442 ms P-R-T Axes : 051 063 056 degree s QTc Int : 473 ms Normal sinus rhythm Normal ECG Confirmed by MD WALSH OMAR ([id number]) on 08/17/19 11:08:59 AM Referred By: Drew Magallanes Confirmed by:ETHAN AVERY MD Electronically Signed by Ethan Walsh MD on 0 08/16/22 at 1108 PATIENT NAME: LEI SIMON 40 2022-08-14 08:53:00-00:00 [facility]L [facility] ([facility]) DT Operative Note REPORT#:[id number] REPORT STATUS: Signed DATE:08/14/22 TIME: 852 PATIENT: LEI SIMON UNIT #: [id number] ROOM/BED: [place] [address] : 39 AGE: 82 SEX: M ATTEND: Lana Walsh MD ADM AUTHOR: Crystal Fermin MD * ALL edits or amendments must be made on the [employer] document * Operative Report Operative Note Note: Preoperative diagnosis: Severe symptomatic aorti c stenosis Postoperative diagnosis: Severe symptomatic aort ic stenosis Procedure: 1.Transcatheter aortic valve replacem ent (TAVR) utilizing # 26 Dong's Yessenia S3 Ultra pe ricardial valve via transfemoral approach with MAC. 2. Ascending aortogram 3. Placement of temporary pacing wire 4. Manta closure of right common femoral artery 5. 6-Canadian Angioseal closure of the left femor al artery Surgeon: Chetan Fermin MD Digital Advertising Analyst: MD Emory Padilla MD Anaesthesia: MAC Estimated blood loss: 20 cc Indication: Mr Simon is a pleasant 82-year-old, m summer with severe symptomatic aortic stenosis. He was investigated and was fou nd to be a suitable candidate for TAVR. After do preop cou nseling he was brought to the hybrid room today for TAVR Findings: 1. Severe calcification of aortic valv e 2. The delivery system was passed without diffi culty into the left ventricular outflow tract for deployment. 3. A 26 mm Yessenia S3 Ultra valve was required 4. Post replacement TTE revealed no paravalvula r leak 5. Patient had good Doppler signals in both low er extremities following the procedure. 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 The pat ient was brought into the hybrid room. A timeout procedure was performed which confirme d the patient's name medical record number and the procedure to be pe rformed. The patient was placed supine on the operating table. The chest, abdomen, and groins were prepped and draped in standard surgical fashion. 1% lidocaine was used to anesthetize th e area over the right femoral artery, and left femoral artery and vein. After placement of appropriate sheath patient was heparinized, to maint ain and a ACT more than 250 second. An aortic root shot was performed, noting t he optimal angle for deployment of the valve. This confirmed the position already deter mined by CT angiogram 3D reconstruction. Subsequently, the 26 mm Dong Yessenia S3 Ultra transcatheter valve was placed into the sheath in the right fe moral artery and brought up through the aortic valve and placed in the correct position. This was confirmed by the heart valve team. Subsequently the rapid ventricular pacing was performed and the valve was deployed in the aort ic annulus appropriately. The Cordis and sheath were pulled back. Postplacemen t transthoracic echo revealed good placement of the valve with no aortic insuf ficiency. The mean gradient was minimal. Subsequently, the sheaths were derick corey, the right common femoral artery was closed with a Manta device and the le ft common femoral artery was closed using Angioseal device. The venous sheath from the right groin was removed and hemostasis was achieved with a figur e of eight #1 silk suture. Patient was moved to PACU in stable condition I was present as co-surgeon in conjuncti on with Dr Magallanes and Dr. Yepez. Dr. Magallanes will dictate his portion in detai l. The patient tolerated the procedure well and was taken to the coronary care unit in stable condition. Sponge, needle and instrument count were correct. at 0929 RPT #:[id number] END OF REPORT 2022-08-13 12:12:00-00:00 [id number] [place] [id number] PATIENT NAME: LEI SIMON ADMIT DATE: 08/14/22 ACCOUNT NO: [id number] [facility] 82 REPORT TYPE: eELECTROCARDIOGRAM REPORT SEX: M ADMITTING PHYSICIAN:Ethan Walsh MD ATTENDING PHYSICIAN:Ethan Walsh MD Order: [id number] Test Reason : PREOP Test Date/Time Stamp: SatAug 13 2022 12:12:25 Blood Pressure : / mmHG Vent. Rate : 069 BPM Atrial Rate : 069 BPM P-R Int : 162 ms QRS Dur : 074 ms QT Int : 386 ms P-R-T Axes : 037 019 031 degree s QTc Int : 413 ms Normal sinus rhythm Normal ECG Confirmed by MD WALSH OMAR ([id number]) on 08/15/19 7:52:16 AM Referred By: Drew Magallanes Confirmed by:ETHAN RICHARDSON MD Electronically Signed by Ethan Walsh MD on 0 08/14/22 at 0752 PATIENT NAME: LEI SIMON 40 2022-07-06 08:08:00-00:00 [id number] [place] [address] PATIENT NAME: LEI SIMON ADMIT DATE: 07/04/22 ACCOUNT NO: [id number] ROOM NO: AGE: 82 REPORT TYPE: PULMONARY FUNCTION REPORT SEX: M ADMITTING PHYSICIAN: ATTENDING PHYSICIAN:Arya Horowitz NP STUDY DATE: 07/04/2022 FULL PFT INTERPRETATION DATE: 07/06/2022 SPIROMETRY: FVC is 106% of predicted. FEV1 is 11 2% of predicted. No response to bronchodilator. Ratio is 73. TLC 89. Diffusio n capacity 117%. FULL PULMONARY FUNCTION OF TEST: Within normal l imits. Dictated By: Zonia Chavez MD Date Dictated: 07/06/2022 08:08:48 Date Transcribed: 07/06/2022 09:05:37 /LENO Receipt ID: [id number] Authenticated by ZONIA CHAVEZ MD On 07/09/2022 02:27:30 PM Electronically Signed by Zonia Chavez MD on at 0227 PATIENT NAME: LEI SIMON 18
[2022-08-27 14:25] LABS: Absolute Lymphocytes (CBC) 1.1 K/uL (0.7-4.9); Hematocrit 41.3 % (39.6-49.0); Lymphocytes % 13.4 % (15.3-44.8); MCV 89.9 fL (80-100); MPV 8.2 fL (7.6-11.3); RBC Red Blood Cell Count 4.59 M/uL (4.33-5.43)
[2022-08-27 14:45] LABS: Bilirubin Direct 0.3 mg/dL (0-0.2); Bilirubin Indirect, Calculated 0.8 mg/dL (0.2-0.8); Bilirubin Total 1.1 mg/dL (0.2-1.0); Magnesium 2.4 mg/dL (1.6-2.4); Potassium 3.7 mEq/L (3.5-5.1); Protein, Total 7.6 g/dL (6.4-8.2)
[2022-08-27 14:46] LABS: Troponin High Sensitivity 70.6 pg/mL (<58.9)
--- NOTE | 2022-08-27 15:12 | ER ---
Nurse's Notes [facility] Name: Valente Dave Age: 82 yrs Sex: Male : 1940 Arrival Date: 08/27/2022 Time: 13:45 Bed 5 Private MD: Janie Montero C Diagnosis: Weakness;Other malaise and fatigue;Dehydration;Post AVR Presentation: 08/27 14:03 Chief complaint: Patient states: "2 weeks ago, I got my aortic valve replaced. I was mb9 feeling great until yesterday. I started having tingling in my bilateral face and I just feel funny. The tingling comes and goes." Pt denies chest pain, SOB, and dizziness. Coronavirus screen: Vaccine status: Patient reports receiving the 2nd dose of the covid vaccine. Ebola Screen: No symptoms or risks identified at this time. Initial Sepsis Screen: Does the patient meet any 2 criteria? HR > 90 bpm. Does the patient have a suspected source of infection? No. Patient's initial sepsis screen is negative. Risk Assessment: Do you want to hurt yourself or someone else? Patient reports no desire to harm self or others. Onset of symptoms was August 27, 2022. 14:03 Method Of Arrival: Ambulatory mb9 14:03 Acuity: GLORIA 3 mb9 Triage Assessment: 14:07 General: Appears in no apparent distress. Behavior is calm, cooperative. Pain: Denies mb9 pain. EENT: No signs and/or symptoms were reported regarding the EENT system. Neuro: Courtney Agitation-Sedation Scale (RASS): 0 - Alert and Calm Level of Consciousness is awake, alert, obeys commands, Oriented to person, place, time, situation, Appropriate for age Cook Manager are equal bilaterally Moves all extremities. Gait is steady, Speech is normal, Facial symmetry appears normal, Pupils are PERRLA, Intact Denies dizziness. Cardiovascular: Denies chest pain, shortness of breath. Respiratory: Airway is patent Respiratory effort is even, unlabored, Respiratory pattern is regular, symmetrical. GI: Abdomen is flat, non-distended. Derm: Skin is pink, warm \\T\\ dry. Musculoskeletal: Range of motion: intact in all extremities. Historical: - Allergies: 14:05 No Known Allergies; mb9 - Home Meds: 14:05 atorvastatin oral [Active]; Plavix Oral [Active]; Aspirin Oral [Active]; mb9 Hydrochlorothiazide Oral [Active]; - PMHx: 14:05 BPH; High Cholesterol; Hypertension; mb9 - PSHx: 14:05 Aortic valve; mb9 - Immunization history:: Adult Immunizations up to date. - Social history:: Smoking status: Patient denies any tobacco usage or history of. Screenin:08 [facility] ED Fall Risk Assessment (Adult) History of falling in the last 3 months, mb9 including since admission No falls in past 3 months (0 pts) Confusion or Disorientation No (0 pts) Intoxicated or Sedated No (0 pts) Impaired Gait No (0 pts) Mobility Assist Device Used No (0 pt) Altered Elimination No (0 pt) Score/Fall Risk Level 0 - 2 = Low Risk Oriented to surroundings, Maintained a safe environment, Educated pt \\T\\ family on fall prevention, incl call for assistance when getting out of bed. Abuse screen: Denies threats or abuse. Nutritional screening: No deficits noted. Tuberculosis screening: No symptoms or risk factors identified. Assessment: 14:22 General: Appears in no apparent distress. comfortable, Behavior is calm, cooperative, kc6 appropriate for age. Pain: Denies pain. Neuro: Courtney Agitation-Sedation Scale (RASS): 0 - Alert and Calm Level of Consciousness is awake, alert, obeys commands, Oriented to person, place, time, situation, Appropriate for age Cook Manager are equal bilaterally Moves all extremities. Gait is steady, Speech is normal, Facial symmetry appears normal, Pupils are PERRLA, Intact. Cardiovascular: Heart tones S1 S2 present Capillary refill < 3 seconds Rhythm is sinus rhythm Chest pain is denied. Respiratory: Airway is patent Trachea midline Respiratory effort is even, unlabored, Respiratory pattern is regular, symmetrical, Denies shortness of breath. GI: No signs and/or symptoms were reported involving the gastrointestinal system. : No signs and/or symptoms were reported regarding the genitourinary system. EENT: No signs and/or symptoms were reported regarding the EENT system. Derm: No signs and/or symptoms reported regarding the dermatologic system. Skin is intact, Skin is pink, warm \\T\\ dry. Musculoskeletal: No signs and/or symptoms reported regarding the musculoskeletal system. Circulation, motion, and sensation intact. Capillary refill < 3 seconds, Range of motion: intact in all extremities. 15:22 Reassessment: Patient appears in no apparent distress at this time. No changes from kc6 previously documented assessment. Patient and/or family updated on plan of care and expected duration. Pain level reassessed. Patient is alert, oriented x 3, equal unlabored respirations, skin warm/dry/pink. 16:21 Reassessment: Patient appears in no apparent distress at this time. No changes from kc6 previously documented assessment. Patient and/or family updated on plan of care and expected duration. Pain level reassessed. Patient is alert, oriented x 3, equal unlabored respirations, skin warm/dry/pink. Vital Signs: 14:03 BP 157 / 70; Pulse 97; Resp 18; Temp 98.6; Pulse Ox 100% on R/A; Weight 77.11 kg; mb9 Height 5 ft. 7 in. ; Pain 0/10; 16:21 BP 135 / 82; Pulse 73; Resp 19 S; Pulse Ox 97% on R/A; Pain 0/10; kc6 14:03 Body Mass Index 26.63 (77.11 kg, 170.18 cm) mb9 14:03 Pain Scale: Adult mb9 16:21 Pain Scale: Adult kc6 NIH Stroke Scale Scores: 14:08 NIHSS Score: 0 mb9 ED Course: 13:47 Patient arrived in ED. im 13:47 Janie Montero MD is Private Physician. im 13:53 Joel Acosta MD is Attending Physician. kdr 14:03 Arm band placed on. mb9 14:05 Triage completed. mb9 14:06 Judith Mota, MARIANELA is Primary Nurse. kc6 14:09 Placed in gown. Bed in low position. Call light in reach. Side rails up X 1. Client mb9 placed on continuous cardiac and pulse oximetry monitoring. NIBP monitoring applied. patient monitor on. 14:21 Inserted saline lock: 20 gauge in right antecubital area, using aseptic technique. kc6 Blood collected. 15:08 XRAY Chest (1 view) In Process Unspecified. EDMS 15:10 Janie Montero MD is Hospitalizing Provider. kdr Administered Medications: 15:30 Drug: NS 0.9% IV 1000 ml Route: IV; Rate: 125 ml/hr; Site: right antecubital; kc6 16:52 Follow up: Response: No adverse reaction; IV Status: Infusion continued upon admission kc6 Outcome: 15:11 Decision to Hospitalize by Provider. kdr 17:40 Patient left the ED. jl7 NIH Stroke Scale - NIH Stroke Score Date: 08/27/2022 Time: 14:08 Total Score = 0 10. Dysarthria (speech clarity - read or repeat words) - 0(Normal) 11. Extinction and Inattention (visual/tactile/auditory/spatial/personal) - 0(No abnormality) 1a. Level of Consciousness (LOC) - 0(Alert) 1b. Level of Consciousness (LOC) (Month \\T\\ Age) - 0(Both) 1c. LOC Commands (Open \\T\\ Closes Eyes/Personal Health Coach) - 0(Both) 2. Best Gaze (Lateral Gaze Paresis) - 0(Normal) 3. Visual Field Loss - 0(No visual loss) 4. Facial Palsy - 0(Normal) 5a. Left Arm: Motor (10-second hold) - 0(No drift) 5b. Right Arm: Motor (10-second hold) - 0(No drift) 6a. Left Leg: Motor (5-second hold - always test supine) - 0(No drift) 6b. Right Leg: Motor (5-second hold - always test supine) - 0(No drift) 7. Limb Ataxia (finger/nose \\T\\ heel/espinoza - test with eyes open) - 0(Absent) 8. Sensory Loss (pinprick arms/legs/face) - 0(Normal) 9. Best Language: Aphasia (description/naming/reading) - 0(No aphasia) Initials: mb9 Signatures: Dispatcher [employer] EDMS Joel Acosta MD MD kdr Leal, Jahala RN RN jl7 Judith Mota RN RN kc6 Susan Morales RN RN mb9 Sandra Wells
--- NOTE | 2022-08-27 15:12 | EDPHYS ---
Physician Documentation [facility] Name: Valente Dave Age: 82 yrs Sex: Male : 1940 Arrival Date: 08/27/2022 Time: 13:45 Bed 5 Private MD: Janie Montero C ED Physician Joel Acosta Historical: - Allergies: 08/27 14:05 No Known Allergies; mb9 - Home Meds: 14:05 atorvastatin oral [Active]; Plavix Oral [Active]; Aspirin Oral [Active]; mb9 Hydrochlorothiazide Oral [Active]; - PMHx: 14:05 BPH; High Cholesterol; Hypertension; mb9 - PSHx: 14:05 Aortic valve; mb9 - Immunization history:: Adult Immunizations up to date. - Social history:: Smoking status: Patient denies any tobacco usage or history of. Vital Signs: 14:03 BP 157 / 70; Pulse 97; Resp 18; Temp 98.6; Pulse Ox 100% on R/A; Weight 77.11 kg; mb9 Height 5 ft. 7 in. ; Pain 0/10; 16:21 BP 135 / 82; Pulse 73; Resp 19 S; Pulse Ox 97% on R/A; Pain 0/10; kc6 14:03 Body Mass Index 26.63 (77.11 kg, 170.18 cm) mb9 14:03 Pain Scale: Adult mb9 16:21 Pain Scale: Adult kc6 NIH Stroke Scale Scores: 14:08 NIHSS Score: 0 mb9 MDM: 15:11 Patient medically screened. kdr 08/27 13:54 Order name: Basic Metabolic Panel; Complete Time: 14:51 kdr 08/27 13:54 Order name: CBC with Diff; Complete Time: 14:51 kdr 08/27 13:54 Order name: LFT's; Complete Time: 14:51 kdr 08/27 13:54 Order name: Magnesium; Complete Time: 14:51 kdr 08/27 13:54 Order name: NT PRO-BNP; Complete Time: 14:51 kdr 08/27 13:54 Order name: Troponin HS; Complete Time: 14:51 kdr 08/27 15:35 Order name: Basic Metabolic Panel EDMS 08/27 15:35 Order name: Basic Metabolic Panel EDMS 08/27 15:35 Order name: CBC with Automated Diff EDMS 08/27 15:35 Order name: CBC with Automated Diff EDMS 08/27 15:35 Order name: Troponin High Sensitivity EDMS 08/27 13:54 Order name: XRAY Chest (1 view) kdr 08/27 13:54 Order name: EKG; Complete Time: 14:05 kdr 08/27 15:35 Order name: CONS Physician Consult EDMS 08/27 15:35 Order name: EKG Electrocardiogram EDMS 08/27 15:35 Order name: EKG Electrocardiogram EDMS 08/27 15:35 Order name: EKG Electrocardiogram EDMS 08/27 15:35 Order name: EKG Electrocardiogram EDMS 08/27 13:54 Order name: Cardiac monitoring; Complete Time: 14:21 [facility] 08/27 13:54 Order name: EKG - Nurse/Tech; Complete Time: 14:21 kdr 08/27 13:54 Order name: IV Saline Lock; Complete Time: 14:21 [facility] 08/27 13:54 Order name: Labs collected and sent; Complete Time: 14:21 [facility] 08/27 13:54 Order name: O2 Per Protocol; Complete Time: 14:21 [facility] 08/27 13:54 Order name: O2 Sat Monitoring; Complete Time: 14:21 kdr Administered Medications: 15:30 Drug: NS 0.9% IV 1000 ml Route: IV; Rate: 125 ml/hr; Site: right antecubital; [facility] 16:52 Follow up: Response: No adverse reaction; IV Status: Infusion continued upon admission kc6 Disposition Summary: 08/27/22 15:11 Hospitalization Ordered Hospitalization Status: Observation kdr Provider: Janie Montero Location: Telemetry/[facility] (observation) kdr Condition: Fair kdr Problem: new kdr Symptoms: have improved kdr Bed/Room Type: Standard kdr Room Assignment: 203(08/27/22 16:22) iw Diagnosis - Weakness kdr - Other malaise and fatigue kdr - Dehydration kdr - Post AVR kdr Forms: - Medication Reconciliation Form kdr - SBAR form kdr NIH Stroke Scale - NIH Stroke Score Date: 08/27/2022 Time: 14:08 Total Score = 0 10. Dysarthria (speech clarity - read or repeat words) - 0(Normal) 11. Extinction and Inattention (visual/tactile/auditory/spatial/personal) - 0(No abnormality) 1a. Level of Consciousness (LOC) - 0(Alert) 1b. Level of Consciousness (LOC) (Month \T\ Age) - 0(Both) 1c. LOC Commands (Open \T\ Closes Eyes/Head Of Digital Advertising & Integration) - 0(Both) 2. Best Gaze (Lateral Gaze Paresis) - 0(Normal) 3. Visual Field Loss - 0(No visual loss) 4. Facial Palsy - 0(Normal) 5a. Left Arm: Motor (10-second hold) - 0(No drift) 5b. Right Arm: Motor (10-second hold) - 0(No drift) 6a. Left Leg: Motor (5-second hold - always test supine) - 0(No drift) 6b. Right Leg: Motor (5-second hold - always test supine) - 0(No drift) 7. Limb Ataxia (finger/nose \T\ heel/espinoza - test with eyes open) - 0(Absent) 8. Sensory Loss (pinprick arms/legs/face) - 0(Normal) 9. Best Language: Aphasia (description/naming/reading) - 0(No aphasia) Initials: mb9 Signatures: Dispatcher [employer] EDJoel Resendiz MD MD [facility] Tyesha Vera RN RN iw Judith Mota RN RN kc6 Susan Morales RN RN mb9 Corrections: (The following items were deleted from the chart) 16:22 15:11 kdr iw
--- NOTE | 2022-08-27 15:22 | RAD REPORT ---
EXAM DESCRIPTION: RAD - Chest Single View - 08/27/2022 3:06 pm CLINICAL HISTORY: Weakness Chest pain. COMPARISON: Chest Pa And Lat (2 Views) dated 06/22/2022; Chest Single View dated 08/06/2018; Chest Sin gle View dated 11/14/2015 FINDINGS: Portable technique limits examination quality. The lungs are grossly clear. The heart is normal in size. No displaced fractures. IMPRESSION: No acute intrathoracic process suspected.
[2022-08-27] MEDS ORDERED: NA CHLORIDE 0.9% 1,000 ML ONE (15:26)
[2022-08-27] MEDS ORDERED: ONDANSETRON 4 MG/2 ML VIAL IV PRN (15:32)
[2022-08-27] MEDS ORDERED: ACETAMINOPHEN 500 MG TAB PO PRN (15:32)
[2022-08-27] MEDS: NA CHLORIDE 0.9% 1,000 ML IV SCH (17:50)
[2022-08-27 18:09] VITALS: BMI 26.6
[2022-08-27] MEDS ORDERED: ATORVASTATIN 20 MG TAB PO SCH (21:00)
[2022-08-27] MEDS ORDERED: FAMOTIDINE 20 MG TAB PO SCH (21:00)
[2022-08-27] MEDS ORDERED: AMLODIPINE 5 MG TAB PO SCH (21:00)
[2022-08-27] MEDS ORDERED: GABAPENTIN 300 MG CAP PO SCH (21:00)
[2022-08-28] MEDS: NA CHLORIDE 0.9% 1,000 ML IV SCH (01:01)
[2022-08-28 03:38] LABS: Absolute Lymphocytes (CBC) 1.1 K/uL (0.7-4.9); Hematocrit 38.6 % (39.6-49.0); Lymphocytes % 13.9 % (15.3-44.8); MCV 90.3 fL (80-100); MPV 8.7 fL (7.6-11.3); RBC Red Blood Cell Count 4.27 M/uL (4.33-5.43)
[2022-08-28 04:14] LABS: Potassium 3.8 mEq/L (3.5-5.1); Troponin High Sensitivity 49.4 pg/mL (<58.9)
[2022-08-28 08:23] VITALS: BP 141/71; TEMP 98.7
[2022-08-28] MEDS ORDERED: ASPIRIN EC 81 MG TAB PO SCH (09:00)
[2022-08-28 09:41] VITALS: O2SAT 94
--- NOTE | 2022-08-28 10:19 | SS ---
Date of Discharge: 08/28/2022 Chief Complaint: Not feeling good. History Of Present Illness: This is an 82-year-old very pleasant male patient who was admitted to [facility] after he came into emergency room yesterday with above-mentioned complaints. About 2 week s ago, patient had surgery done for aortic valve replacement. This was transcatheter aortic valve re placement procedure done. Patient was doing fine, recovering very well at home without any problems, taking all his medications as prescribed. Family thought he did too much activity and that is why t his problem got started, but when I asked details about what actually he did day before he came into the hospital. He says he just picked up a case of water bottles and picked it up from one place and put it at another place, then he cleaned his litter box in the house and mopped the floor that he nor laurel does after cleaning the litter box. He did not do any yard work, did not do any exercise, so t he patient does not think he did excess amount of work and I agree with him that this was not excess amount to work to cause him to feel this way. He denies any chest pain, shortness of breath, fever, chills, abdominal pain, nausea, vomiting. He reports that he had a little bit light headache type of feeling that actually has resolved. Upon further questioning, it appears that he is not drinking en ough water. After he came into emergency room, he was evaluated. His initial troponin was slightly elevated. EKG had not shown any acute changes. Patient was admitted to the hospital for observation with serial cardiac enzymes and request for cardiology consultation. When I saw him this morning, scott murillo was feeling fine and was with him at bedside. Denies any complaints and patient reports that he feels like he is back to his normal usual self. Allergies: NO KNOWN ALLERGIES. Medications: Aspirin 81 mg daily, clopidogrel 75 mg daily, atorvastatin 20 mg daily in the evening, amlodipine 5 mg daily at bedtime, famotidine 40 mg daily at bedtime, gabapentin 300 mg daily at bedti me, losartan 100 mg daily, tramadol 50 mg b.i.d. p.r.n. Review of Systems: Constitutional: As mentioned above. All other systems reviewed and negative. Past Medical History: Significant for impaired fasting glucose, hypertension, hyperlipidemia, aortic stenosis, gastroesophageal reflux, nonalcoholic fatty liver disease, diverticulosis, benign prostati c hypertrophy, osteoarthritis at multiple sites. Past Surgical History: Patient had [employer] laser photoselective vaporization of prostate procedur e done for enlarged prostate in the past and 2 weeks ago had transcatheter aortic valve replacement s [facility]. Family History: Father , had nephrotic syndrome. Mother , had colitis. Social History: Negative for smoking. Use of alcohol rarely. Physical Examination: Vital Signs: Temperature 96.9 this morning with pulse 73, respiratory rate 18, blood pressure 117/77 , oxygen saturation 93%. Height 5 feet 7 inches, weight 170 pounds. General: Awake, alert, oriented, not in distress. HEENT: Head atraumatic, normocephalic. Conjunctivae nonerythematous. Sclerae white. Mouth, no thr ush or edema noted. Ears/Nose, no mass, lesion, discharge noted. Neck: Supple. No JVD, lymph nodes, bruit, thyromegaly noted. Lungs: Bilateral good equal air entry. Clear to auscultation. No rhonchi. No rales. Heart: Normal heart sounds, no murmur or gallop. Abdomen: Soft, bowel sounds normal. No guarding, rigidity, tenderness, mass, hepatosplenomegaly, dis tention, or bruit noted. Extremities: No leg edema. No calf tenderness. Skin: No rash, ulcer, cellulitis. Lymphatics: No lymph node enlargement in neck, supraclavicular, infraclavicular region. Neuro: No focal neurological deficit. Chest: Unremarkable. External Genitalia: Deferred. Rectal: Deferred. Laboratory Data: Yesterday, white count 8.2, hemoglobin 13.6, platelets 297. This morning, white co unt 7.9, hemoglobin 12.9, platelets 311. Yesterday, sodium 140, potassium 3.7, chloride 106, bicarb 30, BUN 23, creatinine 1.31. Estimated GFR 54. Glucose 117. Liver function tests unremarkable. Tr oponin 70.6 on the first set, second set 58.7, third set 49.4. This morning with CPK 39. This morni ng repeat chemistry, sodium 140, potassium 3.8, chloride 106, bicarb 30, BUN 21, creatinine 1.14, glu cose 112, and calcium level 9.2. Chest x-ray, no acute changes noted. Hospital Course: After patient was evaluated in the emergency room, he was admitted to the hospital. IV fluid hydration was started and this morning his renal function is better. Overall, he feels be tter, well enough that he feels like he is back to his normal baseline. I did talk to him and encour aged him to drink 60 ounces of water daily and patient is medically stable for discharge. There is n o evidence of any myocardial infarction and in fact, patient had a cardiac catheterization done on 2022, at our hospital showing normal coronary arteries. At this point, there is no need for will oing hospitalization and patient was encouraged to drink plenty of water as advised to keep him well hydrated. Patient was discharged to go home today in stable condition with instruction to come see federico murillo for followup next week. Final Diagnoses: 1.Volume depletion. 2.Acute kidney injury. 3.Hypertension. 4.Hyperlipidemia. 5.Aortic stenosis, status post transcatheter aortic valve replacement. 6.Impaired fasting glucose. 7.Benign prostatic hypertrophy. 8.Gastroesophageal reflux disease. 9.Osteoarthritis, multiple sites. 10.Nonalcoholic fatty liver disease. ALVARO/MODL Voice ID: [id number] Report ID: [id number]
--- NOTE | 2022-08-29 12:36 | EKG ---
Test Date: 2022-08-27 Test Time: 14:12:36 Radiographer Cardiac Catheterization: RADHA MEASUREMENT RESULTS: Intervals: Rate: 93 NV: 248 QRSD: 76 QT: 362 QTc: 450 [place]: P: 2 NV: 248 QRS: 69 T: 59 INTERPRETIVE STATEMENTS: Sinus rhythm with 1st degree AV block Otherwise normal ECG Compared to ECG 06/22/2022 10:33:49 First degree AV block now present Electronically Signed On 08-29-22 12:33:27 CDT by Drew Magallanes
== END 2022-08-28 10:10 | disposition home or self-care (01) ==
LOC: ER 13:45 → ERHOLD 15:34 → 2ND 16:58
PROVIDERS: ADMIT Internal Medicine; ATTEND Internal Medicine
DX: E86.9 Volume depletion, unspecified (principal); N17.9 Acute kidney failure, unspecified; I10 Essential (primary) hypertension; E78.5 Hyperlipidemia, unspecified; R73.01 Impaired fasting glucose; N40.0 Benign prostatic hyperplasia without lower urinary tract symptoms; K21.9 Gastro-esophageal reflux disease without esophagitis; M19.90 Unspecified osteoarthritis, unspecified site; K76.0 Fatty (change of) liver, not elsewhere classified; Z98.890 Other specified postprocedural states; Z95.2 Presence of prosthetic heart valve
CPT/HCPCS: 85025 ×2; 80048 ×2; 36415; 83735; 82550; 80076; 84484 ×3; 83880; 71045; 96360; 99285; J7030 ×2; 93005; G0378

== ENCOUNTER → 2023-04-01 | Emergency (ER) | payer OTHER ==
[~2023-04-01] MED LIST: NA CHLORIDE 0.9% 500 ML ONE
--- OUTSIDE RECORDS SUMMARY | 2023-04-01 11:37 | XMS REPORT | Continuity of Care Document ---
Author Name Unknown Address [address] [facility] [address] [place] [address] [facility] thconnect Address [address] [facility] [address] [place] [address] Care Team Providers Care Interior Decorator Paperhanging Name Role Phone Emory Yepez Attending Clinician Arya Hardin Attending Clinician Unavailable Ketan Attending Clinician Unavailable Crystal Fermin Admitting Clinician Alecia cazares Physician, No Primary or Family Admitting Clinic shanta Unavailable Ketan Admitting Clinician Unavailable Payers Payer Name Policy Type Policy Number Effective Date Expirati on Date Source Allergies, Adverse Reactions, Alerts Allergy Name Allergy Type Status Severity Reaction(s) Onset Date Inactive Date Treating Clinician Comments Source No Known Allergie s DA Active U 08-13 00:00: 00 [facility] Procedures Procedure Date / Time Performed Performing Clinicia n Source [id number] 2022-08-14 00:00:00 [facility]01 [facility] [id number] 2022-08-14 00:00:00 [facility]01 [facility] Encounters Start Date/Time End Date/Time Encounter Type Admission Type Attending Clinicians Care Facility Care Department Encounter ID Source 2022-08-14 05:36:00 2022-08-15 12:25:00 Inpatient Emory Hunt [facility] [id number] 41 [facility] 2022-07-04 09:00:00 2022-07-04 09:00:00 Outpatient Arya Olivarez [facility] [id number] 19 [facility] 2019-07-10 03:20:00 2019-07-10 03:20:00 [facility]patient Ketan [facility] [id number] [facility] Results Test Description Test Time Test Comments Results Result Co mments Source BASIC METABOLIC [id number] 07:25:00* Test Item Value Reference Range Interpretation Comme nts SODIUM (test code = NA) 140 mEq/L 134-147 N POTASSIUM (test code = K) 3.5 mEq/L 3.4-5.0 N CHLORIDE (test code = CL) 107 mEq/L 100-108 N CARBON DIOXIDE (test code = CO2) 26 mEq/l 21-33 N ANION GAP (test code = GAP) 10 0-20 N GLUCOSE (test code = GLU) 163 mg/dL 70-110 H BLOOD UREA NITROGEN (test code = BUN) 16 mg/dL 7-18 N GLOMERULAR FILTRATION RATE (test code = GFR) 84.7 70-80 H The Glomerular Filtration Rate is a calculated parameterbased on serum Creatinine, patient age and sex. GFR valuesless than 60 mL/min/1.73 square meters are indicative ofChronic Kidney Disease. Values less than 15 mL/min/1.73square meters indicate Kidney failure. The calculation forGFR is based on the CKD-EPI (2020) calculation. This formulais race indifferent and is the recommended formula for GFRby the National Kidney Foundation for Adults.The GFR will not calculate if the sex is unknown or if thepatient's age is <18 years. CREATININE (test code = CREAT) 0.9 mg/dL 0.6-1.3 N CALCIUM (test code = CA) 8.6 mg/dL 8.0-10.5 N [id number] 08:27:00* Test Item Value Reference Range Interpretation Comme nts ACT-ISTAT (test code = ACTI) 281 SEC 74-137 H Performed by cer tified pulpit operator at [facility] COVID 19 Asymptomatic IH [id number] 15:36:00* Test Item Value Reference Range Interpretation Comme nts COVID 19 Asymptomatic IH AG (test code = COVNONPUIAG) Negative Negative A negative resul t is presumptive and should be confirmedwith an FDA authorized molecular assay, if necessary forpatient management.A positive result does not rule out co-infections withother pathogens.This test detects both viable (live) and non-viable,SARS-CoV, and SARS-CoV-2. Test performance depends on theamount of virus (antigen) in the sample.This test has not been FDA cleared or approved; the test hasbeen authorized by FDA under an Emergency Use Authorization(EUA) for use by laboratories certified under the CLIA thatmeet the requirements to perform moderate, high or waivedcomplexity tests. CBC W/AUTO [id number] 13:33:00* Test Item Value Reference Range Interpretation Comme nts WHITE BLOOD CELL (test code = WBC) 6.4 x10 3/uL 4.5-11.0 N RED BLOOD CELL (test code = RBC) 4.35 x10 6/uL 4.00-5.60 N HEMOGLOBIN (test code = HGB) 13.0 g/dL 12.5-16.9 N HEMATOCRIT (test code = HCT) 40.6 % 37.5-50.7 N MEAN CELL VOLUME (test code = MCV) 93.3 fL 81.0-99.0 N MEAN CELL HGB (test code = MCH) 29.9 pg 27.0-33.0 N MEAN CELL HGB CONCETRATION (test code = MCHC) 32.0 g/dL 33.0-37.0 L RED CELL DISTRIBUTION WIDTH CV (test code = RDW) 13.8 % 11.5-14.5 N PLATELET COUNT (test code = PLT) 266 x10 3/uL 150-400 N NEUTROPHIL % (test code = NT%) 65.2 % 56.0-77.0 N LYMPHOCYTE % (test code = LY%) 18.9 % 14.0-32.0 N NEUTROPHIL # (test code = NT#) 4.14 x10 3/uL 2.0-7.6 N LYMPHOCYTE # (test code = LY#) 1.20 x10 3/uL 1.0-3.8 N MANUAL DIFF REQUIRED (test c ode = MDIFF) NO RED CELL DISTRIBUTION WIDTH SD (test code = RDW-SD) 47.4 fL 37.0-54.0 N MEAN PLATELET VOLUME (test c ode = MPV) 11.5 fL 7.0-9.0 H IMMATURE GRANULOCYTE % (test code = IG%) 0.5 % 0.0-2.0 N MONOCYTE % (test code = MO%) 11.8 % 4.8-9.0 H EOSINOPHIL % (test code = EO%) 2.7 % 0.3-3.7 N BASOPHIL % (test code = BA%) 0.9 % 0.0-2.0 N NUCLEATED RBC % (test code = NRBC%) 0.0 % 0-0 N IMMATURE GRANULOCYTE # (test code = IG#) 0.03 x10 3/uL 0.00-0.03 N MONOCYTE # (test code = MO#) 0.75 x10 3/uL 0.1-0.8 N EOSINOPHIL # (test code = EO#) 0.17 x10 3/uL 0.0-0.2 N BASOPHIL # (test code = BA#) 0.06 x10 3/uL 0.0-0.2 N NUCLEATED RBC # (test code = NRBC#) 0.00 x10 3/uL 0.0-0.1 N PROTHROMBIN [id number] 13:27:00* Test Item Value Reference Range Interpretation Comme nts PROTHROMBIN TIME PATIENT (test code = PTP) 12.7 SECONDS 9.3-12.9 N INTERNATIONAL NORMAL RATIO (test code = INR) 1.1 0.8-1.2 N TARGET INR BY INDICATION Indication INR1. Prophylaxis of venous thrombosis 2.0 - 3.0 (orthopedic surgery), Prophylaxis of venous thrombosis (other than high-risk surgery), Treatment of Deep Vein Thrombosis/Pulmonary Embolism, Prevention of systemic embolism - Tissue heart valves, Acute Myocardial Infarction (to prevent systemic embolism), Valvular heart disease, Atrial Fibrillation, Bileaflet mechanical valve in aortic position.2. Mechanical prosthetic valves (high risk), 2.5 - 3.5 Presence of Lupus Anticoagulant or Antiphospholipid Antibodies, Prevention of systemic embolism - Acute Myocardial Infarction (to prevent recurrent infarct). BASIC METABOLIC [id number] 13:25:00* Test Item Value Reference Range Interpretation Comme nts SODIUM (test code = NA) 141 mEq/L 134-147 N POTASSIUM (test code = K) 4.2 mEq/L 3.4-5.0 N CHLORIDE (test code = CL) 106 mEq/L 100-108 N CARBON DIOXIDE (test code = CO2) 30 mEq/l 21-33 N ANION GAP (test code = GAP) 9 0-20 N GLUCOSE (test code = GLU) 109 mg/dL 70-110 N BLOOD UREA NITROGEN (test code = BUN) 20 mg/dL 7-18 H GLOMERULAR FILTRATION RATE (test code = GFR) 54.5 70-80 L The Glomerular Filtration Rate is a calculated parameterbased on serum Creatinine, patient age and sex. GFR valuesless than 60 mL/min/1.73 square meters are indicative ofChronic Kidney Disease. Values less than 15 mL/min/1.73square meters indicate Kidney failure. The calculation forGFR is based on the CKD-EPI (202) calculation. This formulais race indifferent and is the recommended formula for GFRby the National Kidney Foundation for Adults.The GFR will not calculate if the sex is unknown or if thepatient's age is <18 years. CREATININE (test code = CREAT) 1.3 mg/dL 0.6-1.3 N CALCIUM (test code = CA) 9.9 mg/dL 8.0-10.5 N [id number] 13:25:00* Test Item Value Reference Range Interpretation Comme nts ALBUMIN (test code = ALB) 4.10 g/dL 3.4-5.0 N B-TYPE NATRIURETIC [id number] 13:24:00* Test Item Value Reference Range Interpretation Comme nts B-TYPE NATRIURETIC PEPTIDE ( test code = BNP) 66.0 PG/ML 0-100 N - XR CHEST 2 [id number] 00:00:00 [facility] : 1940 Sex: M FAX: Cheko Jones MD [phone] [place]: St: PRE FAX: Ethan Walsh MD [phone] FAX: Drew Conde MD [phone] Name: LEI SIMON [facility] : 1940 Age/S: 82/M [address] [place] [address] Unit #:[id number] Loc: [place] [address] Phys: Ethan Walsh MD Acct: [id number] Dis Date: Status: PRE IN PHONE #: [phone] Exam Date: 08/13/2022 1212 FAX #: [phone] Reason: PREOP EXAMS: CPT CODE: [id number] XR CHEST 2 V 76486 PROCEDURE INFORMATION: Exam: XR Chest Exam date and time: 08/13 12:10 PM Age: 82 years old Clinical indication: Other: Preop TECHNIQUE: Imaging protocol: Radiologic exam of the chest. Views: 2 views. PA and Lateral COMPARISON: CT HEART W CN ART/GRAFTS 07/04/2022 10:12 AM FINDINGS: Lungs: There are normal lung volumes without consolidation or interstitial opacities. There is a small calcified granuloma at the lateral left lung base. Pleural spaces: Unremarkable. No pleural effusion. No pneumothorax. Heart/Mediastinum: The heart size is normal. The pulmonary vasculature is normal. The mediastinal contour is normal. The trachea is midline. Bones/joints:No acute abnormality seen. IMPRESSION: No acute cardiopulmonary findings. at 1227 Reported and signed by: Jeremiah Delgadillo M.D. CC: Cheko Montero MD; Ethan Walsh MD; Drew Magallanes MD Technologist: Anila Kerns RT(R) Trnscrd Date/Time/By: 08/13/2022 (7326) : By: JadielO Orig Print D/T: S: 08/13/2022 (3038) PAGE 1 Signed Report- CTA ABD PEL W [id number] 00:00:00 [facility] 1940 Sex: M Name: LEI SIMON [facility] : 1940 Age/S: 82 / M [address] [place] [address] Blvd Unit #: [id number] Loc: [place] [address] Phys: Arya Horowitz ACCOUNT SPECIALIST Acct: [id number] Dis Date: Status: DEP CLI PHONE #: [phone] Exam Date: 07/04/2022 1057 FAX #: [phone] Reason: AVR EXAMS: CPT CODE: [id number] CTA ABD PEL W CONT 38403 PROCEDURE INFORMATION: Exam: CTA Heart and Coronary Arteries Without andWith Contrast Exam date and time: 07/04/2022 10:12 AM Age: 82 years old Clinical indication: Other:Aortic stenosis TECHNIQUE: Imaging protocol: Computed tomographic angiography [...] Other technique: 3D renderinD reconstructed images were created,reviewed and saved. REPORTING DATA: Count of CT [...] score: 912 AORTIC ANNULAR MEASUREMENTS: Annular area: 438mm2 Perimeter: 85 mm Max diameter: 28 mm Min diameter: 19 mm Annular/Subannular calcification: NoneMitral annular calcification: None Height of left main above annular plane: 16 mm Height of RCA above annular plane: 17 mm Mid ascending aorta diameter: 33 mm PAGE 1 Signed Report (CONTINUED) Name: LEI KENDALL OD [facility] : 1940 Age/S: 82 / M [address] [place] [address] Blvd Unit #: [id number] Loc: [place] [address] Phys: Arya Horowitz ACCOUNT SPECIALIST Acct: [id number] Dis Date: Status: DEP CLI PHONE #: [phone] Exam Date: 07/04/2022 105 FAX #: [phone] Reason: AVR EXAMS: CPT CODE: [id number] CTA ABD PEL W CONT 46782 (Continued) LA chamber size: Mildly dilated. Myocardium: No calcification orfatty metaplasia to suggest prior infarct. Coronary arteries: [...] in prior 12 months: This patient has received0 known CTs and 0 known cardiac nuclear medicine studies in the 12 months prior to the current study. COMPARISON: No relevant prior studies available. FINDINGS: VASCULATURE: Pulmonary arteries: Normal. No pulmonary emboli. Aorta: No aortic aneurysm. No aortic dissection. Celiac trunk and mesentericarteries: No occlusion or significant stenosis. Renal arteries: No occlusion or significant stenosis. Right iliac arteries: No occlusion or significant stenosis. PAGE 2 Signed Report (CONTINUED) Name: LEI SIMON [facility] : 1940 Age/S: 82 / M [address] [place], [place] [address]vd Unit #: [id number] Loc: [place] [address] Phys: Arya Horowitz ACCOUNT SPECIALIST Acct: [id number] Dis Date: Status: DEP CLI PHONE #: [phone] Exam Date: 07/04/20221056 FAX #: [phone] Reason: AVR EXAMS: CPT CODE: [id number] CTA ABD PEL W CONT 11011 (Continued) Left iliac arteries: No occlusion or significant stenosis. CHEST: Lungs: Unremarkable. No consolidation. No masses. Pleural spaces: Unremarkable. No pneumothorax. No pleural effusion. ABDOMEN AND PELVIS: Liver: No mass. There is hepatic steatosis. Gallbladderand bile ducts: Cholelithiasis is present. Pancreas: Unremarkable. [...] The aorta and bilateral iliofemoral arteries are widelypatent without significant stenosis. 2. Cholelithiasis. 3. Colonic diverticulosis. COMMENTS: Unlessotherwise specified, incidental findings do not require dedicated imaging and follow-up. at 0519 Reported and signed by: Guillermo Ferrell M.D. CC: Cheko Montero MD; Arya Horowitz NP; Drew Magallanes MD Technologist:RT Diane(R)(CT) CTDI: DLP: Trnscb Date/Time: 07/05/2022 (518) t.SDR.CM29 Orig Print D/T: S: 07/05/2022 (519) PAGE 3 Signed Report- CT ANGIO [id number] 00:00:00 [facility] 1940 Sex: M Name: LEI SIMON [facility] : 1940 Age/S: 82 / M [address] [place] [address] Unit #: [id number] Loc: [place] [address] Phys: Arya Horowitz NP Acct: [id number] Dis Date: Status: DEP CLI PHONE #: [phone] Exam Date: 07/04/2022 1057 FAX #: [phone] Reason: AVR EXAMS: CPT CODE: [id number] CT ANGIO CHEST 11818 PROCEDURE INFORMATION: Exam: CTA Heart and Coronary Arteries Without and With Contrast Exam date and time: 07/04/2022 10:12 AM Age: 82 years old Clinical indication: Other: Aortic stenosis TECHNIQUE: Imaging protocol: Computed tomographic angiography of the heart, coronary arteries and bypass grafts (when present) without and with contrast including 3D image postprocessing(including evaluation of cardiac structure and morphology, assessment of cardiac function, and evaluation of venous structures, if performed). 3D rendering (Not supervised by radiologist): MIP and/or3D reconstructed images were created by the technologist. [...] NM exams in prior 12 months: This patienthas received 0 known CTs and 0 known [...] 1 Signed Report (CONTINUED) Name: LEI SIMON [facility] : 1940 Age/S: 82 / M [address] [place] [address] Blvd Unit #: [id number] [place]: [place] [address] Phys: Arya Horowitz NP Acct: [id number] Dis Date: Status: DEP CLI PHONE #: [phone] Exam Date: 07/04/2022 1057 FAX #: [phone] Reason: AVR EXAMS: CPT CODE: [id number] CT ANGIO CHEST 18554 (Continued) LA chamber size: Mildly dilated. Myocardium: [...] in prior 12 months: This patient has received0 known CTs and 0 known cardiac nuclear medicine studies in the 12 months prior to the current study. COMPARISON: No relevant prior studies available. FINDINGS: VASCULATURE: Pulmonary arteries: Normal. No pulmonary emboli. Aorta: No aortic aneurysm. No aortic dissection. Celiac trunk and mesentericarteries: No occlusion or significant stenosis. Renal arteries: No occlusion or significant stenosis. Right iliac arteries: No occlusion or significant stenosis. PAGE 2 Signed Report (CONTINUED) Name: LEI SIMON [facility] : 1940 Age/S: 82 / M [address] [place] [address] Unit #: [id number] Loc: [place] [address] Phys: Arya Horowitz ACCOUNT SPECIALIST Acct: [id number] Dis Date: Status: DEP CLI PHONE#: [phone] Exam Date: 07/04/2022 1057 FAX #: [phone] Reason: AVR EXAMS: CPT CODE: [id number] CT ANGIO CHEST 61566 (Continued) Left iliac arteries: No occlusion or [...] follow-up. at 0519 Reported and signed by: Salma Ferrell M.D. CC: Cheko Montero MD; Arya Horowitz ACCOUNT SPECIALIST; Drew Magallanes MD Technologist:Indio Abreu, RT(R)(CT) CTDI: DLP: Trnscb Date/Time: 07/05/2022 (518) t.SDR.CM29 Orig Print D/T: S: 07/05/2022 (0531) PAGE 3 Signed Report- CTA HEART W CN ART/[id number] 00:00:00 [facility] JADA FULTONName: LEI SIMON : 1940 Sex: M Name: LEI SIMON [facility] Jada [place]ulton : 1940 Age/S: 82 / M [address] [place] [address] Unit #: [id number] Loc: [place] [address] Phys: Arya Horowitz ACCOUNT SPECIALIST Acct: [id number] Dis Date: Status: DEP CLI PHONE #: [phone] Exam Date: 07/04/2022 105 FAX #: [phone] Reason: EXAMS: CPT CODE: [id number] CTA HEART W CN ART/GRAFTS 61201 PROCEDURE INFORMATION: Exam: CTA Heart and Coronary [...] performed). 3D rendering (Not supervised by radiologist): MIPand/or 3D reconstructed images were created by the [...] NM exams in prior 12 months: This p atient has received 0 known CTs and 0 known cardiac nuclear medicine studies in the 12 months priorto the current study. COMPARISON: No relevant prior studies available. FINDINGS: PHASE OF CARDIAC CYCLE MEASUREMENTS OBTAINED: 30% of the R- R interval Aortic valve morphology: Tricuspid Valve calcification: Moderate burden. Aortic valve calcium score: 912 AORTIC ANNULAR MEASUREMENTS: Annular area:438 mm2 Perimeter: 85 mm Max diameter: 28 mm Min diameter: 19 mm Annular/Subannular calcification: None Mitral annular calcification: None Height of left main above annular plane: 16 mm Height of RCAabove annular plane: 17 mm Mid ascending aorta diameter: 33 mm PAGE 1 Signed Report (CONTINUED) Name: LEI SIMON [facility] : 1940 Age/S: 82 / M [address] [place] [address] Unit #: [id number] Loc: [place] [address] Phys: Arya Horowitz ACCOUNT SPECIALIST Acct: [id number] Dis Date: Status: DEP CLI PHONE#: [phone] Exam Date: 07/04/2022 1053 FAX #: [phone] Reason: EXAMS: CPT CODE: [id number] CTA HEART W CN ART/GRAFTS 04879 (Continued) LA chamber size: Mildly dilated. Myocardium: [...] 2 Signed Report (CONTINUED) Name: LEI SIMON [facility] [place] : 1940 Age/S: 82 / M [address] [place] [address] Unit #: [id number] Loc: [place] [address] Phys: LorArya ISIDRO Acct: [id number] Dis Date: Status: DEP CLI PHONE #: [phone] Exam Date: 07/04/2022 1053 FAX #: [phone] Reason: EXAMS: CPT CODE: [id number] CTA HEART W CN ART/GRAFTS 37524 (Continued) Left iliac arteries: No occlusion or significantstenosis. CHEST: Lungs: Unremarkable. No consolidation. No masses. Pleural spaces: Unremarkable. Nopneumothorax. No pleural effusion. ABDOMEN AND PELVIS: Liver: No mass. There is hepatic steatosis. Gallbladder and bile ducts: Cholelithiasis is present. Pancreas: Unremarkable. No mass. No ductal dilation. Spleen: Unremarkable. No splenomegaly. Adrenal glands: Unremarkable. No mass. Kidneys and ureters: Unremarkable. No solid mass. No hydronephrosis. Stomach and bowel: Colonic diverticulosis is present. Appendix: No evidence of appendicitis. Intraperitoneal space: Unremarkable. No free air. Nosignificant fluid collection. Urinary bladder: Unremarkable. No mass. Reproductive: Unremarkable asvisualized. Lymph nodes: Unremarkable. No enlarged lymph nodes. Bones/joints: Unremarkable. No acute fracture. Soft tissues: Unremarkable. IMPRESSION: 1. The aorta and bilateral iliofemoral arteries are widely patent without significant stenosis. 2. Cholelithiasis. 3. Colonic diverticulosis. COMMENTS: Unless otherwise specified, incidental findings do not require dedicated imaging and follow-up. at 0519 Reported and signed by: Gerardo Ferrell M.D. CC: Cheko Montero MD; Arya Horowitz ACCOUNT SPECIALIST; Drew Magallanes MD Technologist:Indio Abreu, RT(R)(CT) CTDI: DLP: Trnscb Date/Time: 07/05/2022 (0519) t.AISLINNR.CM29 Orig Print D/T: S: 07/05/2022 (4220) PAGE 3 Signed ReportCOVID 19 Asymptomatic IH [id number] 12:06:00* Test Item Value Reference Range Interpretation Comme nts COVID 19 Asymptomatic IH AG (test code = COVNONPUIAG) Negative Negative A negative resul t is presumptive and should be confirmedwith an FDA authorized molecular assay, if necessary forpatient management.A positive result does not rule out co-infections withother pathogens.This test detects both viable (live) and non-viable,SARS-CoV, and SARS-CoV-2. Test performance depends on theamount of virus (antigen) in the sample.This test has not been FDA cleared or approved; the test hasbeen authorized by FDA under an Emergency Use Authorization(EUA) for use by laboratories certified under the CLIA thatmeet the requirements to perform moderate, high or waivedcomplexity tests. P [phone] [phone] Notes Date/Time Note Provider Source 2022-08-15 10:49:00 [id number]+ [id number]/+[id number]:49:17002 1[address] [place] [address] PATIENT NAME: LEI SIMON ADMIT DATE: 08/14/22ACCOUNT NO: [id number] ROOM NO: [facility] AGE: 82 REPORT TYPE: eECHOCARDIOGRAM REPORT SEX: M ADMITTING PHYSICIAN:Crystal Fermin MD ATTENDING PHYSICIAN:Crystal Fermin MD *[place], [place] [address]Phone: Bbi: [phone] Transthoracic Echocardiogram Patient: Cathy Simon Date: 08/15/2022 BP: 119 / 67 [id number] 1940 Age: 82 Height: 67 in / 170.2 cmAccession#: [id number] Gender: M Weight: 178.6 lb / 81.2 kgBMI/BSA: 28 kg/m 2 / 1.93 m 2 *Ordering Physician: * Chinyere Salomon NP *Interpreting Physician: * Emory Yepez MD*Monotype Mechanic: * Iesha Reis Indications: POST TAVR. Study data: Transthoracic echocardiogram. Procedure: Transthoracicechocardiography was performed. Image quality was adequate. Adkgzvzq7N, complete spectral Doppler, and color Doppler. Location: Bedside.Patient status: Inpatient. Patient room number: 3352. Study status:AMAN. Findings Left ventricle: The cavity size is normal. Wall thickness is mildlyincreased. Systolic function is normal. The estimated ejection fractionis 55-60%. Wall motion is normal; there are no regional wall motionabnormalities. Doppler parameters are consistent with abnormal leftventricular relaxation (grade 1 diastolic dysfunction).Right ventricle: The cavity size is normal. Systolic function isPATIENT NAME: LEI SIMON normal.Left atrium: The atrium is mildly dilated.Right atrium: The atrium is normal in size.Aorta: Aortic root: The aortic root is normal in size.Aortic valve: There is a bioprosthetic valve.Post TAVR: There is a Dong YESSENIA 3, 26 mm transcatheter valve thatis well seated in the aortic valve position. The LVOT diameter is 2.1cm. The peak aortic gradient is 23.5 mmHg. The mean aortic gradient is11.3 mmHg. The LVOT VTI is 26.1 cm. The AV VTI is 49.8 cm. The aorticvalve area is 1.8 cm 2. The peak jet velocity is 2.4 m/sec. There is noperivalvular leak noted. There is no evidence of stenosis. There isno regurgitation.Mitral valve: The valve is structurally normal. There is noevidence of stenosis. There is mild regurgitation.Tricuspid valve: The valve is structurally normal. There is mildregurgitation.Pulmonic valve: The valve is structurally normal. There is noregurgitation.Pericardium: A trivial pericardial effusion is identified.Pulmonary arteries:The main pulmonary artery is normal-sized.Systemic veins:Inferior vena cava: The vessel is normal in size. Measurements Left ventricle Value Ref ALFREDO, LAX [...] E/e', avg, TDI 12 <=14 LVOT Value RefPATIENT NAME: LEI SIMON Diam, S 2.07 cm -------- Area 3.4 [...] 0.08 m/sec -------- Peak A 1.13 m/sec --------PATIENT NAME: LEI SIMON Decel time 229 ms -------- PHT 59 ms -------- Peak E/A ratio 0.87 -------- MVA, PHT 3.8 cm 2 -------- Pulmonic valve Value Ref MI v, ED 0.68 m/sec -------- Tricuspid valve [...] mildly increased. Systolic function is normal. The estimated ejection fraction is 55-60%. Wall motion is normal; there are no regional wall motion abnormalities. Doppler parameters are consistent with abnormal left ventricular relaxation (grade 1 diastolic dysfunction).2. Right ventricle: The RV pressure during systole by Doppler is 37 mm Hg.3. Left atrium: The atrium is mildly dilated.4. Aortic valve: There is a bioprosthetic valve. There is no perivalvular leak noted. The peak systolic velocity is 2.42 m/sec. The mean systolic gradient is 11.3 mm Hg. The valve area by the velocity-time integral method is 1.76 cm 2.5. Mitral valve: There is mild regurgitation.6. Tricuspid valve: There is mild regurgitation.7. Pericardium, extracardiac: A trivial pericardial effusion is identified. Prepared and electronically signed by Emory Yepez MD08/15/2022 10:49 at 1049 PATIENT NAME: LEI SIMON :49:0 0G.[id number] for patient gkegXSZLHEZGFQRIKV0461-33-95I76:49:43 [facility] 2022-08-15 09:25:00 [id number] 1P/Cu61TrfwMBloLPq4IPAc5ob/6S AYOIRGaoOcbMi5H1wtkEbYZYULy9288-60-19U82:25:00 [facility] ([facility])Discharge SummaryREPORT#:[id number] REPORT STATUS: SignedDATE:08/15/22 TIME: 924 PATIENT: LEI SIMON UNIT #: [id number]#: [id number] [address] [birth year] AGE: 82 SEX: M ATTEND: Emory Yepez MDADM AUTHOR: Anurag Dejesus * ALL edits or amendments must be made on the electronic/computer document * Anurag Dejesus 08/15/22 0925:PCP PCPDischarge to: home General InformationDischarge date: 08/15/22Discharge diagnosis:Severe Symptomatic Aortic StenosisHospital course:This is a 82 year old male that presented for elective transcatheter aortic valve replacement and underwent successful implant of a 26 mm Yessenia S3 Ultra valve. The patient was monitored overnight and did well. The labs and vital signs reviewed bilateral groins CDI without bleeding or hematoma. 1. Severe Symptomatic Aortic Stenosis S/p TAVR 34 mm Evolute Medtronic, successful implant. Patient monitored overnight. Groin sites CDI, sinus rhythm no bleeding noted. Labs and vital signs reviewed. Cardiology reviewed echocardiogram and OK for discharge. F/u in clinic with Cardiology and we will follow with Structural Heart team. Med Rec PCPPCP:PCP: Cheko Montero MD Med RecDischarge meds:Continue taking these medications:LOSARTAN/HCTZ (HYZAAR 100/12.5 MG) 100 MG-12.5 MG TAB 1 TABLET ORAL DAILY. amLODIPine (NORVASC) 5 MG TAB 5 MILLIGRAM ORAL BEDTIME. ATORVASTATIN (LIPITOR) 20 MG TAB 20 MILLIGRAM ORAL BEDTIME. traMADol (ULTRAM) 50 MG TAB 50 MILLIGRAM ORAL EVERY 8 HR NEEDED. as needed for PAIN GABAPENTIN (NEURONTIN) 300 MG CAP 300 MILLIGRAM ORAL FOUR TIMES A DAY. as needed for PAIN Start taking the following new medications:CLOPIDOGREL (PLAVIX) 75 MG TAB 75 MILLIGRAM ORAL DAILY. Days = 30 Qty = 30 Refills = 3 ASPIRIN (ASPIRIN) 81 MG TAB.CHEW 81 MILLIGRAM ORAL DAILY. Days = 30 Qty = 30 Refills = 3 ObjectiveVS/I OLast Documented: Result Date Time Pulse Ox 95 08/15 0711 B/P 142/69 08/15 0711 B/P Mean 93 08/15 0711 Temp 36.6 08/15 0711 Pulse 68 08/15 0711 Resp 16 08/15 0711 O2 Delivery Room air 08/15 0352 O2 Flow Rate 2 08/14 1037 24 hour I O ending at 0700: 08/15 0700 08/14 1900 Intake Total 240 Output Total 650 Balance -410 Intake, Oral 240 Number Voids 3 Output, Urine 650 Patient 78.8 kg Weight Weight Bed scale Measurement Method PATIENT WEIGHT: Weight (lb): 173Weight (oz): 11.59Weight (kg): 78.800 General appearance: alert, awake, orientedCardiovascular: regular rate rhythmRespiratory: clear to auscultation, no distressGI: soft, non-tenderExtremities: moves allNeuro/WARP CLAMPER: alert, oriented X 3Skin: dryWound/incision: Location:Right groin suture removed by this ACCOUNT SPECIALIST. No infection, bleeding, or hematoma. Dermabond applied and intact. ResultsFindings/Data:Laboratory Tests: 08/15 0339 Chemistry Sodium (134 - [...] (Auto) (14.0 - 32.0 %) 4.[address] [place] % (Auto) (4.8 - 9.0 %) 8.9 Eos % (Auto) (0.3 - 3.7 %) 0.1 L Baso % (Auto) (0.0 - 2.0 %) 0.2 Neut # (Auto) (2.0 - 7.6 x10 3/uL) 15.56 H Lymph # (Auto) (1.0 - 3.8 x10 3/uL) 0.[address] [place] # (Auto) (0.1 - 0.8 x10 3/uL) 1.62 H Eos # (Auto) (0.0 - 0.2 x10 3/uL) 0.01 Baso # (Auto) (0.0 - 0.2 x10 3/uL) 0.03 Abs Immat Gran (auto) (0.00 - 0.03 x10 3/uL) 0.10 H Add Manual Diff NO Immature Gran % (0.0 - 2.0 %) 0.5 Nucleated RBC % (0 - 0 %) 0.0 Nucleated RBCs # (Man) (0.0 - 0.1 x10 3/uL) 0.00 Treatments ProceduresTreatments Procedures:1.Transcatheter aortic valve replacement (TAVR) utilizing # 26 Dong's SapienS3 Ultra pericardial valve via transfemoral approach with MAC. 2. Ascending aortogram 3. Placement of temporary pacing wire 4. Manta closure of right common femoral artery 5. 6-Italian Angioseal closure of the left femoral arteryLab:Chemistry last 24 hrs: 08/15 0339 Chemistry Sodium (134 - 147 mEq/L) 140 Potassium (3.4 - 5.0 mEq/L) 3.5 Chloride (100 - 108 mEq/L) 107 BUN (7 - 18 mg/dL) 16 Creatinine (0.6 - 1.3 mg/dL) 0.9 Glucose (70 - 110 mg/dL) 163 H Hematology last 24 hrs: 08/15 0339 Hematology WBC (4.5 - 11.0 x10 3/uL) 18.2 H Hgb (12.5 - 16.9 g/dL) 13.3 Hct (37.5 - 50.7 %) 37.9 Plt Count (150 - 400 x10 3/uL) 204 Neut % (Auto) (56.0 - 77.0 %) 85.4 H Imaging:Recent Impressions:RADIOLOGY - XR CHEST 2 V 08/13 1212 Report Impression - Status: SIGNED Entered: 08/13/2022 1227 IMPRESSION: No acute cardiopulmonary findings. Impression By: Leslie Delgadillo M.D. Discharge Instructions PCPPCP:PCP: Cheko Montero MD )( Discharge to: Home/Self Care Discharge InstructionsAdditional Discharge Routines: Attending Follow-Up)( Diet: Cardiac)( Activity: As Tolerated Follow-up AppointmentsAttending Physician: Attending Physician: Emory Yepez MD Attending physician follow up timeframe: In 1-2 weeks Emory Yepez 08/18/22 1803:Attestations Physician AttestationAgree w/findings plan:I have examined patient. I have reviewed records. I have gone over all the information in detail. I have reviewed all the cardiac labs as well as cardiac medications. I agree with above recommendations. Patient is status post successful TAVR using 26 millimeter S3 valve with no complicationsPostoperative day 1 echo reviewed and showed normally functioning bioprosthetic valve with excellent hemodynamicsPatient is stable to be discharged home today and follow-up with the primary county agent in 1 week Emory Yepez MD, [facility], [facility] – [place]UMAIInterventional CardiologistStructural Heart Home Appliance Installer at 1149 at 1806 RPT #:[id number] OF REPORTDSDischarge otiqrrb7859-98-13J83:25:00G.RHUN39864545-4087LLJb ailable for patient gjskYVKHZTBSRXBART3964-99-15J89:50:10 [facility] 2022-08-15 09:04:00 [id number] ZR/AMH7h/F5ilhjYdIO2Vnk1v1Z6c bar8h0hbfMJ2F+B/8o/ZuDHoAIw2944-74-14U00:04:00 [facility])Cardiothoracic Surgery ProgREPORT#:[id number] REPORT STATUS: SignedDATE:08/15/22 TIME: 09 PATIENT: LEI SIMON UNIT #: [id number]#: [id number] [address]DOB: [birth year] AGE: 82 SEX: M ATTEND: Crystal Fermin MDADM AUTHOR: Evonne Pizano Physic * ALL edits or amendments must be made on the electronic/computer document * GeneralPost-op: day 1Status post:Procedure: 1.Transcatheter aortic valve replacement (TAVR) utilizing # 26 Dong's Yessenia S3 Ultra pericardial valve via transfemoral approach with MAC. 2. Ascending aortogram 3. Placement of temporary pacing wire 4. Manta closure of right common femoral artery 5. 6-Italian Angioseal closure of the left femoral artery SubjectiveChief complaint:Doing well. No complaints Review of SystemsAdditional notes:Constitutional: Negative for fever, chills, weight loss Skin: Negative for rash, negative for swelling negative for any laceration HEENT: Denies hearing loss denies any ear ringing denies any earache denies any sore throat denies any throat pain Respiratory: Denies dyspnea on exertion denies hemoptysis denies any cough denies any shortness of breath Cardiac: Denies chest pain, denies palpitations denies orthopnea GI: Denies constipation denies diarrhea : Denies hematuria denies dysuria denies flank pain Musculoskeletal: Denies any joint pain denies any joint swelling denies any myalgia Hematologic: Denies any easy bruising, denies any bleeding Endocrine: denies any night sweats, denies polyuria polydipsia Neurologic: Denies any lightheaded denies any headache denies any confusion denies any dizziness Objective GeneralVS/I OLast Documented: Result Date Time Pulse Ox 95 [...] scale Measurement Method PATIENT WEIGHT: Weight (lb): 173Weight (oz): 11.59Weight (kg): 78.800 Physical ExamGeneral appearance: alert, awake, orientedWound/incision: Location:Bilateal Groins soft. No evidence for hematoma. HEENT: mucosal membranes moistCardiovascular: BP/pulses equal bilat., regular rate rhythmRespiratory: aerating wellAbdomen: soft, non-tenderExtremities: dry, moves allMusculoskeletal: full range of motionNeuro/WARP CLAMPER: alert, oriented X 3 Diagnosis, Assessment PlanFree Text A P: This is an 82 year old gentleman with past medical history of hypertension, hyperlipidemia, aortic valve stenosis and secondary pulmonary hypertension. He has been experiencing increasing shortness of breath on exertion for the past several months. Patient was seen by Dr Magallanes and Echocardiogram was done and revealed EF 60-65% with a mean gradient 40.7mmhg, and MK 0.9 cm2. Patient was presented in the structural heart conference and deemed a good candidate for TAVR Assessment/plan1. Aortic valve stenosis2. Hypertension3. Hyperlipidemia Patient is admitted for TAVR. The procedure was discussed with the patient prior. 08/15/22S/P TAVRPatient doing well. Denies complaintsBilateral groin wounds are soft. No evidence for hematomaRespiratory: On room airCardiac: Remains sinus rhythmEcho pending.We will plan for DC after echocardiogram interpretedPatient was seen and examined at [facility] at 0935 at 1021 RPT #:[id number] OF REPORTPRProgress jsci2500-02-17F16:04:00G.SGJU18369331-9809SBCpivu able for patient bsgzKLIPFMSSJKYJPD5459-06-88T64:35:40 [facility] 2022-08-15 08:45:00 [id number]/lx yl23HyA71Wv4UKuVlmzvJQtxnmGg3 vAInDdeCO8rqh7VooA9PfIm1r6b7798-72-54G89:45:26596 2-[address] [address] PATIENT NAME: LEI SIMON ADMIT DATE: 08/14/22ACCOUNT NO: [id number] ROOM NO: [facility] AGE: 82 REPORT TYPE: eELECTROCARDIOGRAM REPORT SEX: M ADMITTING PHYSICIAN:Crystal Fermin MD ATTENDING PHYSICIAN:Emory Yepez MD Order:[id number] Reason : POST PCI Test Date/Time Stamp:SatAug 15 2022 08:45:42Blood Pressure : / mmHGVent. Rate : 078 BPM Atrial Rate : 078 BPM P-R Int : 180 ms QRS Dur : 076 ms QT Int : 388 ms P-R-T Axes : 035 029 034 degrees QTc Int : 442 ms Normal sinus rhythmNormal ECGConfirmed by MD WALSH OMAR ([id number]) on 08/16/2022 11:11:37 AM Referred By: Drew Magallanes Confirmed by:ETHAN WALSH MD at 1111 PATIENT NAME: LEI SIMON .[id number] AVAvailable for patient lalkNRMOBCAIEUIBTT1966-15-03F50:12:12 [facility] 2022-08-15 07:30:00 [id number] 27tY8LBjlKhPJEVuEAD+50weEwfVI 8SJgkSFpO1e2Sof1bET9FUDqhqZ7891-81-06N19:30:00 [facility] ([facility])History Physical - AdultREPORT#:[id number] REPORT STATUS: SignedDATE:08/15/22 TIME: 729 PATIENT: LEI SIMON UNIT #: [id number]#: [id number] [address] [birth year] AGE: 82 SEX: M ATTEND: Crystal Fermin [facility] AUTHOR: Evonne Pizano Physic * ALL edits or amendments must be made on the electronic/computer document * Evonne Pizano 08/15/22 0730:History of Present Illness HPIChief complaint:Aortic stenosis HPI: This is an 82 year old gentleman with past medical history of hypertension, hyperlipidemia, aortic valve stenosis and secondary pulmonary hypertension. He has been experiencing increasing shortness of breath on exertion for the past several months. Patient was seen by Dr Magallanes and Echocardiogram was done and revealed EF 60-65% with a mean gradient 40.7mmhg, and MK 0.9 cm2. Patient was presented in the structural heart conference and deemed a good candidate for TAVR HistoryPast medical history:Reports: Hypertension, Dyslipidemia. Smoking status for patients 13 years old or older: Never Smoker Medication/Allergy-Vaccine HxAllergies:Coded Allergies:No Known Allergies (08/13/22) Review of SystemsROS comments:Constitutional: Negative for fever, chills, weight loss Skin: Negative for rash, negative for swelling negative for any laceration HEENT: Denies hearing loss denies any ear ringing denies any earache denies any sore throat denies any throat pain Respiratory: Dyspnea on exertionCardiac: Denies chest pain, denies palpitations denies orthopnea GI: Denies constipation denies diarrhea : Denies hematuria denies dysuria denies flank pain Musculoskeletal: Denies any joint pain denies any joint swelling denies any myalgia Hematologic: Denies any easy bruising, denies any bleeding Endocrine: denies any night sweats, denies polyuria polydipsia Neurologic: Denies any lightheaded denies any headache denies any confusion denies any dizziness Physical ExamVS/I OVital Signs: Date Time Temp Pulse Resp B/P B/P Pulse O2 O2 Flow FiO2 Mean Ox Delivery Rate 08/15 0711 [...] scale Measurement Method PATIENT WEIGHT: Weight (lb): 173Weight (oz): 11.59Weight (kg): 78.800 Free Text PE NotesFree Text PE Notes:General: well nourished, well groomed, no acute distress. HEENT: conjunctiva clear, extraocular movement intact, PERRLA, sclera anicteric.normal dentition, gums, normal, oral mucosa without pallor or cyanosis. Neck: no, JVD, trachea midline, no, lymphadenopathy, neck supple, normal ROM. Respiratory: Clear to auscultation, no distress. Cardiovascular: regular rate and rhythm, 3/6 systolic ejection murmur Abdomen: Soft, non tender. No rebound. No guarding Extremities: dry, moves all. Musculoskeletal: Full range of motion, no CVA tenderness, no muscle spasm Skin: warm, dry, no, lesions, rash. Neurologic: Alert and oriented x3. Psychiatric: affect and demeanor normal Diagnosis, Assessment Plan Free Text DxA P NotesFree Text DxA P Notes: This is an 82 year old gentleman with past medical history of hypertension, hyperlipidemia, aortic valve stenosis and secondary pulmonary hypertension. He has been experiencing increasing shortness of breath on exertion for the past several months. Patient was seen by Dr Magallanes and Echocardiogram was done and revealed EF 60-65% with a mean gradient 40.7mmhg, and MK 0.9 cm2. Patient was presented in the structural heart conference and deemed a good candidate for TAVR Assessment/plan1. Aortic valve stenosis2. Hypertension3. Hyperlipidemia Patient is admitted for TAVR. The procedure was discussed with the patient prior. The risk of the operation including , bleeding, infection, heart attack, stroke, renal failure, dialysis, need for long-term rehabilitation was all discussed with the patient. The patient's questions were answered and the patient agreed to proceed with surgery Crystal Fermin 08/15/22 1017:Attestations Physician AttestationAgree w/findings plan:I have seen and examined Mr. Simon. I agree with the findings and plan as documented by MARIELY Jones. Briefly, 82 old gentleman with severe aortic stenosis being admitted to the hospital for TAVR. I had a long discussion with the patient, explained to him the procedure, risk involved, benefit, alternatives, STS risk of, and complications. at 0903 at 1021 RPT #:[id number] OF REPORTHPHistory and physical fkbzmykfdcw3082-00-29V57:30:00G.[id number] AVAvailable for patient eptnWKAVMUBJLIMMOM0029-36-39Q54:04:16 [facility] 2022-08-14 09:11:00 [id number] /lWxzhiMQQsWMUGL0eZ7SnedJ6arT iv62H388EbZd8ZHEVMOgvvx9XJL8897-68-79R01:11:25529 2-[address] [place] [address] PATIENT NAME: LEI SIMON ADMIT DATE: 08/14/22ACCOUNT NO: [id number] ROOM NO: [facility] AGE: 82 REPORT TYPE: eELECTROCARDIOGRAM REPORT SEX: M ADMITTING PHYSICIAN:Crystal Fermin MD ATTENDING PHYSICIAN:Emory Yepez MD Order:[id number] Reason : TAVR Test Date/Time Stamp:SatAug 14 2022 09:11:29Blood Pressure : / mmHGVent. Rate : 069 BPM Atrial Rate : 069 BPM P-R Int : 182 ms QRS Dur : 084 ms QT Int : 442 ms P-R-T Axes : 051 063 056 degrees QTc Int : 473 ms Normal sinus rhythmNormal ECGConfirmed by MD WALSH OMAR ([id number]) on 08/16/2022 11:08:59 AM Referred By: Drew Magallanes Confirmed by:ETHAN WALSH MD at 1108 PATIENT NAME: LEI SIMON .[id number] AVAvailable for patient ewseQRYNEWJJYKWJJJ9910-46-11K14:09:21 [facility] 2022-08-14 09:06:00 [id number] subzzA5anavwKKwkJHFKLeDV+s8Bi crEaJZB6MqDcd6Iw8u1dZO4GnWK7967-84-44V64:06:78072 0-[address] [address] PATIENT NAME: LEI SIMON ADMIT DATE: 08/14/22ACCOUNT NO: [id number] ROOM NO: G.3352 AGE: 82 REPORT TYPE: OPERATIVE REPORT SEX: M ADMITTING PHYSICIAN:Crystal Fermin MD ATTENDING PHYSICIAN:Emory Yepez MD OPERATION DATE: 08/14/2022 PREOPERATIVE DIAGNOSIS: POSTOPERATIVE DIAGNOSIS: PROCEDURES PERFORMED: Transcatheter aortic valve replacement using 26 mm Dong S3 Yessenia Ultra valve via right femoral artery access. INDICATIONS: Severe aortic valve stenosis with congestive heart failure symptoms. ACCESS:1. Right femoral artery, 14-Italian, closed with MANTA closure device.2. Right femoral vein, 8-Italian, closed with upqtvw-cq-amfqz suture.3. Left femoral artery, 5-Italian, closed with 6-Italian Angio-Seal. COMPLICATIONS: None. BLEEDING: Less than 100 mL. PRIMARY OPERATORS: Drew Magallanes M.D./Emory Yepez M.D. assisting. PRIMARY SURGEON: Crystal Fermin M.D. DIRECTOR LEARNING SERVICES: ANESTHESIA: DESCRIPTION OF PROCEDURE: After risks, benefits, and alternatives were explained, the patient agreed to proceed and signed informed consent. The patient was brought into the hybrid operating room, prepped and draped in the usual sterile fashion and then after proper timeout, using the micropuncture kit, ultrasound guidance and fluoroscopy, I accessed right femoral artery, rightfemoral vein, and left femoral artery and placed a 6-Italian [place] sheath in each and then I upgraded the right femoral artery access to 14-Italian Dong sheath, gave systemic heparin to assure ACT level above 250 and then I took a balloon-tipped pacemaker wire through the venous access into the RV into the intraventricular septum. Pacemaker was tested and secured in place. Subsequently, I took a marked pigtail. Through the left femoral artery, I accessed into the aortic root over a J-wire and then took an AL1 catheter over J-wire into the aortic root through the right femoral artery access and using a straight wire, the valve was crossed successfully and then I sent an Amplatz PATIENT NAME: LEI SIMON extra stiff wire into the LV and removed the AL1 catheter, then I took a 26 mm valve after it was prepped in the usual sterile fashion and loaded that over theAmplatz wire and advanced it into the abdominal aorta and valve was assembled, then valve was advanced through the aortic arch and aortic root, crossing the aortic valve and in the deployment angle, a root angiogram was done and positionwas confirmed. Subsequently, under rapid pacing settings with a loss of pressure, valve was deployed successfully and then did bedside echo, valve seated well, no leak. Then, delivery system was removed and then the right femoral artery access sheath was removed and closed the access with MANTA closure device and then I took the pigtail from the left femoral artery access into the distal aorta and performed a limited groin angiogram. There was no extravasation of bleeding. Then, I took the pigtail out and closed the left femoral access using 6-Italian Angio-Seal successfully without complications and then removed the venous access and closed with dutqyx-tc-tbzmt suture. The patient was transferred to recovery in stable condition. CONCLUSION: Successful transcatheter aortic valve replacement using 26 mm Yessenia S3 Ultra valve via right femoral artery access. PLAN: Admit for observation overnight. Dictated By: Drew Magallanes MD Date Dictated: 08/14/2022 09:06:31Date Transcribed: 08/14/2022 10:34:50SR/Subha #: [id number] ID: [id number] by Drew Magallanes MD On 09/04/2022 10:56:20 AM at 1056 PATIENT NAME: LEI SIMON othnhm8814-43-77X25:34:00G.IXQ27767559-6488PPOirb lable for patient gkxgWEBPIXLEWNIMSY3449-83-48Z15:56:48 [facility] 2022-08-14 08:53:00 [id number]/N pl9QwdaeI/9tECYqwv0HXPCI/nVGr h5zxZgytbrBDGOoDNhU0qDRSHJx1168-65-26N26:53:00 [facility] ([facility])DT Operative NoteREPORT#:[id number] REPORT STATUS: SignedDATE:08/14/22 TIME: 08 PATIENT: LEI SIMON UNIT #: [id number]#: [id number] ROOM[facility]BED: [facility]DOB: [birth year] AGE: 82 SEX: M ATTEND: Ethan Walsh [facility] AUTHOR: Crystal Fermin MD * ALL edits or amendments must be made on the electronic/computer document * Operative Report Operative NoteNote:Preoperative diagnosis: Severe symptomatic aortic stenosis Postoperative diagnosis: Severe symptomatic aortic stenosis Procedure: 1.Transcatheter aortic valve replacement (TAVR) utilizing # 26 Dong's Yessenia S3 Ultra pericardial valve via transfemoral approach with MAC. 2. Ascending aortogram 3. Placement of temporary pacing wire 4. Manta closure of right common femoral artery 5. 6-Italian Angioseal closure of the left femoral artery Surgeon: Chetan Fermin MD Delivery Mgr: MD Emory Padilla MD Anaesthesia: MAC Estimated blood loss: 20 cc Indication: Mr Simon is a pleasant 82-year-old, male with severe symptomatic aortic stenosis. He was investigated and was found to be a suitable candidate for TAVR. After do preop counseling he was brought to the hybrid room today forTAVR Findings: 1. Severe calcification of aortic valve 2. The delivery system was passed without difficulty into the left ventricular outflow tract for deployment. 3. A 26 mm Yessenia S3 Ultra valve was required 4. Post replacement TTE revealed no paravalvular leak 5. Patient had good Doppler signals in both lower extremities following the procedure. Procedure in detail: Further details will be dictated by Dr. Magallanes as he was the phlebotomy services technician. The patient was brought into the hybrid room. A timeout procedure was performed which confirmed the patient's name medical record number and the procedure to be performed. The patient was placed supine on the operating table.The chest, abdomen, and groins were prepped and draped in standard surgical fashion. 1% lidocaine was used to anesthetize the area over the right femoral artery, and left femoral artery and vein. After placement of appropriate sheath patient was heparinized, to maintain and a ACT more than 250 second. An aortic root shot was performed, noting the optimal angle for deployment of the valve. This confirmed the position already determined by CT angiogram 3D reconstruction. Subsequently, the 26 mm Dong Yessenia S3 Ultra transcatheter valve was placed into the sheath in the right femoral artery and brought up through the aortic valve and placed in the correct position. This was confirmedby the heart valve team. Subsequently the rapid ventricular pacing was performed and the valve was deployed in the aortic annulus appropriately. The Cordis and sheath were pulled back. Postplacement transthoracic echo revealed good placement of the valve with no aortic insufficiency. The mean gradient was minimal. Subsequently, the sheaths were removed, the right common femoral artery was closed with a Manta device and the left common femoral artery was closed using Angioseal device. The venous sheath from the right groin was removed and hemostasis was achieved with a figure of eight #1 silk suture. Patient was moved to PACU in stable condition I was present as co-surgeon in conjunction with Dr Magallanes and Dr. Yepez. Dr. Magallanes will dictate his portion in detail. The patient tolerated the procedure well and was taken to the coronary care unit in stable condition. Sponge, needle and instrument count were correct. at 0929 [facility] #:[id number] OF REPORTOPOperative lcggpb3619-90-58E49:53:00G.[id number] ilable for patient zpuzIZSLWLDIACNGYE6873-73-16N57:30:10 [facility] 2022-08-13 12:12:00 [id number] vXzlzYw1d+CcZETdJgLdiqugvb8Bm AA93zw2JyxUfE+wHa5rpD0TKY+C6912-04-55E50:12:05560 0-[address] [address] PATIENT NAME: LEI SIMON ADMIT DATE: 08/14/22ACCOUNT NO: [id number] ROOM NO: [facility] AGE: 82 REPORT TYPE: eELECTROCARDIOGRAM REPORT SEX: M ADMITTING PHYSICIAN:Ethan Walsh MD ATTENDING PHYSICIAN:Ethan Walsh MD Order:[id number] Reason : PREOP Test Date/Time Stamp:SatAug 13 2022 12:12:25Blood Pressure : / mmHGVent. Rate : 069 BPM Atrial Rate : 069 BPM P-R Int : 162 ms QRS Dur : 074 ms QT Int : 386 ms P-R-T Axes : 037 019 031 degrees QTc Int : 413 ms Normal sinus rhythmNormal ECGConfirmed by MD WALSH OMAR ([id number]) on 08/14/2022 7:52:16 AM Referred By: Drew Magallanes Confirmed by:ETHAN WALSH MD at 0752 PATIENT NAME: LEI SIMON .[id number] AVAvailable for patient [id number] [facility] 2022-07-06 08:08:00 [id number] 2-[address] [place] [address] PATIENT NAME: LEI SIMON ADMIT DATE: 07/04/22ACCOUNT NO: [id number] ROOM NO: AGE: 82 REPORT TYPE: PULMONARY FUNCTION REPORT SEX: M ADMITTING PHYSICIAN: ATTENDING PHYSICIAN:Arya Horowitz NP STUDY DATE: 07/04/2022 FULL PFT INTERPRETATION DATE: 07/06/2022 SPIROMETRY: FVC is 106% of predicted. FEV1 is 112% of predicted. No response to bronchodilator. Ratio is 73. TLC 89. Diffusion capacity 117%. FULL PULMONARY FUNCTION OF TEST: Within normal limits. Dictated By: Zonia Chavez MD Date Dictated: 07/06/2022 08:08:48Date Transcribed: 07/06/2022 09:05:37MD/ASHBriannab #: [id number] ID: [id number] by ZONIA CHAVEZ MD On 07/09/2022 02:27:30 PM at 0227 PATIENT NAME: LEI SIMON [id number] [facility] for [facility] [id number]:09 HCACL
[2023-04-01 12:23] LABS: Absolute Lymphocytes (CBC) 0.9 K/uL (0.7-4.9); Hematocrit 43.4 % (39.6-49.0); Lymphocytes % 11.8 % (15.3-44.8); MPV 8.8 fL (7.6-11.3); Platelets 239 thou/uL (152-406); RBC Red Blood Cell Count 4.88 M/uL (4.33-5.43)
[2023-04-01 12:48] LABS: Specific Gravity 1.006 (1.005-1.030); Urine Bacteria None Seen /HPF (<20); Urine Bilirubin NEGATIVE (Negative); Urine Blood Trace (Negative); Urine Clarity Clear (Clear); Urine Color Light-Yellow (Yellow); Urine Glucose NEGATIVE (Negative); Urine Protein NEGATIVE (Negative); Urine RBC <5 /HPF (None Seen); Urine Urobilinogen Normal (Normal)
[2023-04-01 13:05] LABS: Albumin 3.7 g/dL (3.4-5.0); Bilirubin Total 0.9 mg/dL (0.2-1.0); Magnesium 2.1 mg/dL (1.6-2.4); Potassium 3.5 mEq/L (3.5-5.1); Protein, Total 7.2 g/dL (6.4-8.2)
--- NOTE | 2023-04-01 14:39 | RAD REPORT ---
EXAM DESCRIPTION: CT - Abdomen Pelvis W Contrast - 04/01/2023 1:45 pm CLINICAL HISTORY: diarrhea;Abd pain COMPARISON: No comparisons TECHNIQUE: Thin cut axial CT imaging of the abdomen and pelvis was performed following intravenous a dministration of 100 mL Isovue 300. Multiplanar reformats were generated and reviewed. All CT scans are performed using dose optimization technique as appropriate and may include automated exposure control or mA/KV adjustment according to patient size. FINDINGS: No suspicious findings in the lung bases. Mild left lower lobe granuloma. The liver, spleen, adrenal glands, and pancreas show no suspicious findings. Gallbladder shows naga us small hyperdense stones accumulating near the neck. Symmetric renal function is seen with no hydronephrosis or suspicious renal mass. 1.2 cm exophytic ri ght lower pole fluid density lesion, not well characterized, but suggestive of a small cyst. No dilated bowel loops or bowel wall thickening. Mild colonic diverticulosis. Appendix is unremarkabl e. No free air, free fluid or inflammatory stranding. No hernia, mass or bulky lymphadenopathy. The u rinary bladder is without significant finding. Moderate prostatomegaly. No suspicious bony findings. IMPRESSION: No acute intra-abdominal process. No inflammatory fat stranding or bowel wall thickening , with attention to the colon. Incidental findings as above.
--- NOTE | 2023-04-01 15:15 | ER ---
Nurse's Notes [facility] Name: Valente Dave Age: 83 yrs Sex: Male : 1940 Arrival Date: 04/01/2023 Time: 11:33 Bed 3 Private MD: Janie Montero C Diagnosis: Diarrhea, unspecified Presentation: 04/01 11:47 Chief complaint: Patient states: 2-3 wks ago, not feeling well, went to [facility] and ko1 diagnosed with colitis. Saw Dr Montero, he told him to finish meds given by [facility] and then start the new medicine he was prescribed. Coronavirus screen: At this time, the client does not indicate any symptoms associated with coronavirus-19. Ebola Screen: No symptoms or risks identified at this time. Initial Sepsis Screen: Does the patient meet any 2 criteria? No. Patient's initial sepsis screen is negative. Does the patient have a suspected source of infection? No. Patient's initial sepsis screen is negative. Risk Assessment: Do you want to hurt yourself or someone else? Patient reports no desire to harm self or others. Onset of symptoms is unknown. 11:47 Method Of Arrival: Ambulatory ko1 11:47 Acuity: GLORIA 3 ko1 Triage Assessment: 11:51 General: Appears in no apparent distress. Behavior is calm, cooperative, appropriate ko1 for age. Pain: Complains of pain in abdomen. GI: Reports lower abdominal pain, diarrhea. Historical: - Allergies: 11:51 No Known Allergies; ko1 - PMHx: 11:51 BPH; High Cholesterol; Hypertension; ko1 - PSHx: 11:51 aortic valve; ko1 - Immunization history:: Adult Immunizations up to date. - Social history:: Smoking status: Patient denies any tobacco usage or history of. Screenin:29 [facility] ED Fall Risk Assessment (Adult) History of falling in the last 3 months, ph including since admission No falls in past 3 months (0 pts) Confusion or Disorientation No (0 pts) Intoxicated or Sedated No (0 pts) Impaired Gait No (0 pts) Mobility Assist Device Used No (0 pt) Altered Elimination No (0 pt) Score/Fall Risk Level 0 - 2 = Low Risk Oriented to surroundings, Maintained a safe environment, Provided non-skid footwear, Hourly rounding (assess needs \T\ fall precautionary measures) done. Abuse screen: Denies threats or abuse. Denies injuries from another. Nutritional screening: No deficits noted. Tuberculosis screening: No symptoms or risk factors identified. Assessment: 12:28 General: Appears in no apparent distress. comfortable, well groomed, Behavior is calm, ph cooperative, appropriate for age, Reports fatigue for. Pain: Denies pain. Neuro: Level of Consciousness is awake, alert, obeys commands, Oriented to person, place, time, situation. Cardiovascular: Capillary refill < 3 seconds in bilateral fingers Patient's skin is warm and dry. Respiratory: Airway is patent Respiratory effort is even, unlabored. GI: Bowel sounds present X 4 quads. Abd is soft X 4 quads Reports diarrhea, Patient currently denies abdominal pain, nausea, vomiting. : Reports burning with urination. Derm: Skin is pink, warm \T\ dry. 13:18 Reassessment: Patient appears in no apparent distress at this time. No changes from kc6 previously documented assessment. Patient and/or family updated on plan of care and expected duration. Pain level reassessed. Patient is alert, oriented x 3, equal unlabored respirations, skin warm/dry/pink. Vital Signs: 11:47 BP 122 / 80; Pulse 91; Resp 16; Temp 98.1; Pulse Ox 98% ; ko1 13:18 BP 141 / 93; Pulse 75; Resp 16 S; Pulse Ox 100% on R/A; kc6 14:30 BP 132 / 78; Pulse 69; Resp 18; Temp 98; Pulse Ox 99% on R/A; ph ED Course: 11:36 Patient arrived in ED. mr 11:37 Janie Montero MD is Private Physician. mr 11:40 [facility] cp 11:40 Joshua Grace MD is Attending Physician. cp 11:51 Triage completed. ko1 11:51 Arm band placed on left wrist. Patient placed in an exam room, on a stretcher, on ko1 cardiac cath technologist, on pulse oximetry, Patient notified of wait time. 11:56 Nayana Duncan, RN is Primary Nurse. ph 12:17 Lactate w/ 2H reflex if indic. Sent. ph 12:17 Magnesium Sent. ph 12:17 CBC with Diff Sent. ph 12:17 CMP Sent. ph 12:17 Lipase Sent. ph 12:27 Lactate w/ 2H reflex if indic. Sent. ph 12:27 Magnesium Sent. ph 12:28 CMP Sent. ph 12:28 Lipase Sent. ph 12:28 Urinalysis w/ reflexes Sent. ph 12:29 Patient has correct armband on for positive identification. Bed in low position. Call ph light in reach. Side rails up X2. Pulse ox on. NIBP on. Door closed. Noise minimized. 12:29 Initial lab(s) drawn, by me, sent to lab. Inserted saline lock: 20 gauge in left ph antecubital area, using aseptic technique. Blood collected. 13:45 CT Abd/Pelvis - IV Contrast Only In Process Unspecified. EDNC 15:14 Janie Montero MD is Referral Physician. cp 15:22 No provider procedures requiring assistance completed. IV discontinued, intact, ph bleeding controlled, No redness/swelling at site. Pressure dressing applied. Administered Medications: 12:27 Drug: NS 0.9% IV 500 ml IV at 500 ml/hr continuous Route: IV; Rate: 500 ml/hr; Site: ph left antecubital; 13:30 Follow up: Response: No adverse reaction; IV Status: Completed infusion; IV Intake: ph 500ml 15:22 Not Given (Other Intervention Used): ns 0.9% 500 ml IV at 100 ml/hr continuous ph Medication: 12: VIS not applicable for this client. ph Intake: 13:30 IV: 500ml; Total: 500ml. ph Outcome: 15:15 Discharge ordered by MD. cp 15:22 Discharged to home ambulatory, with significant other, ph 15:22 Condition: good 15:22 Discharge instructions given to patient, significant other, Instructed on discharge instructions, follow up and referral plans. Demonstrated understanding of instructions, follow-up care, 15:23 Patient left the ED. ph Signatures: Dispatcher [employer] EDNC CampbellSusan craven, Reg Aleksey mr Nayana Duncan RN RN ph Joshua Roman PA PA cp Judith Mota RN RN kc6 Elvira Card RN RN ko1
--- NOTE | 2023-04-01 15:15 | EDPHYS ---
Physician Documentation [facility] Name: Valente Dave Age: 83 yrs Sex: Male : 1940 Arrival Date: 04/01/2023 Time: 11:33 Bed 3 Private MD: Janie Montero C ED Physician Joshua Grace HPI: 04/01 12:00 This 83 yrs old Male presents to ER via Ambulatory with complaints of Abdominal Pain, cp Diarrhea, Dehydrated. 12:00 The patient presents to the emergency department with diarrhea, that is continuous. cp 12:00 Onset: The symptoms/episode began/occurred 2-3 weeks ago. cp 12:00 Associated signs and symptoms: Pertinent positives: abdominal pain, diarrhea, decreased cp appetite, Pertinent negatives: fever, GI bleeding, vomiting. 12:00 Patient reports he was seen and diagnosed with colitis about 2 weeks ago. Finished cp prescribed antibiotics yesterday. Concerned about possible dehydration and continued diarrhea. Denies blood in stool. Reports 1 watery bowel movement this morning. Historical: - Allergies: 11:51 No Known Allergies; ko1 - PMHx: 11:51 BPH; High Cholesterol; Hypertension; ko1 - PSHx: 11:51 aortic valve; ko1 - Immunization history:: Adult Immunizations up to date. - Social history:: Smoking status: Patient denies any tobacco usage or history of. ROS: 12:05 Constitutional: Positive for poor PO intake, Negative for fever, cp 12:05 Eyes: Negative for injury, pain, redness, and discharge, cp 12:05 Cardiovascular: Negative for chest pain, palpitations, 12:05 Respiratory: Negative for cough, shortness of breath, wheezing, 12:05 Abdomen/GI: Positive for abdominal pain, diarrhea, Negative for vomiting, constipation, black/tarry stool, rectal bleeding, 12:05 Back: Negative for pain at rest, pain with movement, cp 12:05 : Negative for urinary symptoms, testicular pain 12:05 Skin: Negative for rash, 12:05 Neuro: Negative for altered mental status, dizziness, headache, syncope, weakness, 12:05 All other systems are negative, Exam: 12:10 Constitutional: The patient appears in no acute distress, alert, awake, comfortable, cp non-diaphoretic, non-toxic, well developed, well nourished, 12:10 Head/Face: Normocephalic, atraumatic. cp 12:10 Eyes: Periorbital structures: appear normal, Conjunctiva: normal, no exudate, no injection, Sclera: no appreciated abnormality, Lids and lashes: appear normal, bilaterally, 12:10 ENT: External ear(s): are unremarkable, Nose: is normal, Mouth: Lips: moist, Oral mucosa: pink and intact, moist, Posterior pharynx: is normal, airway is patent, no erythema, no exudate, 12:10 Chest/axilla: Inspection: normal, 12:10 Cardiovascular: Rate: normal, Rhythm: regular, Edema: is not appreciated, JVD: is not appreciated, 12:10 Respiratory: the patient does not display signs of respiratory distress, Respirations: normal, no use of accessory muscles, no retractions, labored breathing, is not present, Breath sounds: are clear throughout, no decreased breath sounds, no stridor, no wheezing, 12:10 Abdomen/GI: Inspection: abdomen appears normal, Bowel sounds: active, all quadrants, Palpation: soft, in all quadrants, nontender, in all quadrants, 12:10 Back: pain, is absent, ROM is normal, 12:10 Skin: no rash present. 12:10 Neuro: Orientation: to person, place \T\ time. Mentation: is normal, Motor: moves all fours, strength is normal, Sensation: is normal, Vital Signs: 11:47 BP 122 / 80; Pulse 91; Resp 16; Temp 98.1; Pulse Ox 98% ; ko1 13:18 BP 141 / 93; Pulse 75; Resp 16 S; Pulse Ox 100% on R/A; kc6 14:30 BP 132 / 78; Pulse 69; Resp 18; Temp 98; Pulse Ox 99% on R/A; ph MDM: 11:55 Patient medically screened. 12:30 Differential diagnosis: gastritis, viral gastroenteritis, gastroenteritis, colitis, cp diverticulitis, electrolyte abnormality, dehydration. 15:05 Data reviewed: vital signs, nurses notes, lab test result(s), radiologic studies, CT cp scan. 15:05 Management of patient was discussed with the following: Primary Care Provider: DR Winston wan who will f/u with patient in clinic. 15:10 I considered the following discharge prescriptions or medication management in the emergency department Medications were administered in the Emergency Department. See APR. 15:10 Care significantly affected by the following chronic conditions: Hypertension. cp Counseling: I had a detailed discussion with the patient and/or guardian regarding the historical points, exam findings, and any diagnostic results supporting the discharge/admit diagnosis, lab results, radiology results, the need for outpatient follow up, an elastic tape inserter, to return to the emergency department if symptoms worsen or persist or if there are any questions or concerns that arise at home. Response to treatment: the patient's symptoms have markedly improved after treatment, and as a result, I will discharge patient. 04/01 12:00 Order name: CBC with Diff; Complete Time: 13:28 cp 04/01 13:28 Interpretation: Normal except: PHILIPP% 77.9; LYM% 11.8. cp 04/01 12:00 Order name: CMP; Complete Time: 13:28 cp 04/01 12:00 Order name: Lipase; Complete Time: 13:28 cp 04/01 12:00 Order name: Urinalysis w/ reflexes; Complete Time: 13:28 cp 04/01 12:00 Order name: Lactate w/ 2H reflex if indic.; Complete Time: 13:28 cp 04/01 12:00 Order name: Magnesium; Complete Time: 13:28 cp 04/01 13:30 Order name: CT Abd/Pelvis - IV Contrast Only; Complete Time: 14:54 cp 04/01 14:55 Interpretation: Report reviewed. cp 04/01 12:00 Order name: IV Saline Lock; Complete Time: 12:16 cp 04/01 12:00 Order name: Labs collected and sent; Complete Time: 12:17 cp Administered Medications: 12:27 Drug: NS 0.9% IV 500 ml IV at 500 ml/hr continuous Route: IV; Rate: 500 ml/hr; Site: ph left antecubital; 13:30 Follow up: Response: No adverse reaction; IV Status: Completed infusion; IV Intake: ph 500ml 15:22 Not Given (Other Intervention Used): ns 0.9% 500 ml IV at 100 ml/hr continuous ph Disposition Summary: 04/01/23 15:15 Discharge Ordered Notes: Location: Home cp Problem: an ongoing problem cp Symptoms: have improved cp Condition: Stable cp Diagnosis - Diarrhea, unspecified cp Followup: cp - With: Janie Montero MD - When: 2 - 3 days - Reason: Recheck today's complaints Discharge Instructions: - Discharge Summary Sheet cp - Food Choices to Help Relieve Diarrhea, Adult cp - Diarrhea, Adult cp Forms: - Medication Reconciliation Form cp - Thank You Letter cp - Antibiotic Education cp - Prescription Opioid Use cp - Patient Portal Instructions cp - Leadership Thank You Letter cp Signatures: Dispatcher [employer] Nayana Barksdale RN RN Joshua Roman PA PA cp Oliver, Kathy RN RN ko1
[2023-04-02 02:23] VITALS: BP 132/78; TEMP 98; O2SAT 99
== END ==
LOC: ER 11:33
DX: R19.7 Diarrhea, unspecified (principal); R10.9 Unspecified abdominal pain; I10 Essential (primary) hypertension
CPT/HCPCS: 85025; 81001; 36415; 83735; 83605; 83690; 80053; 74177; Q9967; J7040